=== PATIENT | female | born 1940 ===

== ENCOUNTER 2020-11-22 14:38 | Outpatient (REF) | payer MEDICARE, SELFPAY ==
--- NOTE | ~2020-11-22 | XR_ITS ---
EXAMINATION: XR RIBS, RIGHT CLINICAL INFORMATION: Right pleurodynia and upper quadrant pain. COMPARISON: Chest x-ray of 11/05/2017 TECHNIQUE: PA chest and 3 views of the right ribs. FINDINGS: There is no evidence of acute parenchymal disease, pneumothorax, or pleural effusion. Heart normal size. No evidence of pulmonary edema. No acute right rib fracture is identified. No destructive bony lesion is appreciated. Patient is status post-cholecystectomy. XR/XR ribs RT min 3V w CXR1V IMPRESSION: No acute parenchymal disease within the chest. No significant abnormality of the right ribs appreciated.
== END 2020-11-22 14:39 | disposition home or self-care (01) ==
LOC: HO.XRAY 14:38
PROVIDERS: PCP Family Medicine; Visit Provider Emergency Medicine
DX: R07.81 Pleurodynia (principal); R10.11 Right upper quadrant pain
CPT/HCPCS: 71101

== ENCOUNTER 2021-01-13 09:54 | Outpatient (REF) | payer MEDICARE, SELFPAY ==
--- NOTE | ~2021-01-13 | XR_ITS ---
EXAMINATION: XR KNEE, RIGHT CLINICAL INFORMATION: Right lower leg injury COMPARISON: None TECHNIQUE: Four views of the right knee. FINDINGS: Osteopenia. No fracture, dislocation, or joint effusion. Vascular calcifications. Enthesopathy of the distal quadriceps tendon attachment to the patella. Mild medial compartment joint space narrowing. XR/XR knee RT 4V IMPRESSION: Mild degenerative changes. No acute osseous abnormality.
== END 2021-01-13 09:55 | disposition home or self-care (01) ==
LOC: HO.XRAY 09:54
PROVIDERS: Absent Provider Family Medicine; PCP Family Medicine; Visit Provider Emergency Medicine
DX: S89.91XD Unspecified injury of right lower leg, subsequent encounter (principal)
CPT/HCPCS: 73564

== ENCOUNTER 2021-01-18 11:06 | Outpatient (REF) | payer MEDICARE, SELFPAY ==
--- NOTE | ~2021-01-18 | US_ITS ---
EXAMINATION: US ABDOMEN COMPLETE CLINICAL INFORMATION: Right upper quadrant pain. COMPARISON: CT abdomen and pelvis 04/26/2017. Renal ultrasound 10/12/2016. Ultrasound abdomen complete 03/09/2015. TECHNIQUE: Real-time imaging of the abdominal viscera. FINDINGS: PANCREAS: Normal ABDOMINAL AORTA: The proximal, mid, and distal segments are normal in caliber. INFERIOR VENA CAVA: Visualized portions are normal. LIVER: Normal. The liver is normal in size. The liver contour is normal. Parenchymal echogenicity is normal. No focal hepatic lesion. There is no intrahepatic biliary duct dilatation seen. GALLBLADDER: Surgically absent. COMMON BILE DUCT: Normal in caliber measuring 0.5 cm in diameter. RIGHT KIDNEY: Normal. No hydronephrosis. No renal calculi or focal parenchymal lesions. The kidney measures 11.6 cm in maximum dimension. LEFT KIDNEY: There are anechoic cysts seen. The upper pole cyst laterally measures 1.6 x 1.9 x 1.8 seen. A midpole cyst laterally measures 1.9 x 2.0 x 1.7 cm. No hydronephrosis or renal calculi. The kidney measures 10.2 cm in maximum dimension. SPLEEN: The spleen is small size. The spleen measures 6.6 cm in maximum dimension. FREE FLUID: None US/US abdomen complete IMPRESSION: Left renal cysts. No echogenic renal calculi or hydronephrosis. The rest of the abdominal ultrasound is unremarkable.
== END 2021-01-18 11:07 | disposition home or self-care (01) ==
LOC: HO.US 11:06
PROVIDERS: Visit Provider Emergency Medicine
DX: R10.11 Right upper quadrant pain (principal); R07.81 Pleurodynia
CPT/HCPCS: 76700

== ENCOUNTER 2021-03-10 10:02 | Outpatient (REF) | payer MEDICARE, SELFPAY ==
--- NOTE | ~2021-03-10 | XR_ITS ---
EXAMINATION: 1. XR KNEES AP STANDING 2. XR RIGHT KNEE TWO VIEWS CLINICAL INFORMATION: Right knee pain COMPARISON: None TECHNIQUE: AP bilateral standing view of the knees was obtained in addition to lateral and patellar sunrise views of the right knee. FINDINGS: No fracture or dislocation of the right knee. There is a small to moderate right-sided suprapatellar joint effusion. Mild to moderate narrowing of the right medial and patellofemoral joint spaces. Small tricompartmental marginal osteophytes are noted within the right knee, most prominent within the medial compartment. Vascular calcifications are demonstrated. AP view of the left knee demonstrates mild to moderate narrowing of the left medial joint space. XR/XR knee RT 1V IMPRESSION: Mild to moderate degenerative changes of the right knee with a [id number] right-sided suprapatellar joint effusion.
--- NOTE | ~2021-03-10 | XR_ITS ---
EXAMINATION: 1. XR KNEES AP STANDING 2. XR RIGHT KNEE TWO VIEWS CLINICAL INFORMATION: Right knee pain COMPARISON: None TECHNIQUE: AP bilateral standing view of the knees was obtained in addition to lateral and patellar sunrise views of the right knee. FINDINGS: No fracture or dislocation of the right knee. There is a small to moderate right-sided suprapatellar joint effusion. Mild to moderate narrowing of the right medial and patellofemoral joint spaces. Small tricompartmental marginal osteophytes are noted within the right knee, most prominent within the medial compartment. Vascular calcifications are demonstrated. AP view of the left knee demonstrates mild to moderate narrowing of the left medial joint space. XR/XR knee standing BI IMPRESSION: Mild to moderate degenerative changes of the right knee with a [id number] right-sided suprapatellar joint effusion.
== END 2021-03-10 10:03 | disposition home or self-care (01) ==
LOC: HO.HOSX 10:02
PROVIDERS: Visit Provider Physician Assistant
DX: M17.11 Unilateral primary osteoarthritis, right knee (principal); M25.562 Pain in left knee
CPT/HCPCS: 73560; 73565; 99202

== ENCOUNTER 2021-07-05 10:54 | Outpatient (REF) | payer MEDICARE, SELFPAY ==
--- NOTE | ~2021-07-05 | MM_ITS ---
EXAMINATION: BONE DENSITOMETRY CLINICAL INDICATION: Osteopenia. COMPARISON: Previous BD dated 04/02/2017 and baseline BD dated 01/27/2009. TECHNIQUE: Using a [employer] DXA System (software version: 13.1) manufactured by [employer], dual-energy x-ray absorptiometry was performed of the lumbar spine and left hip. The images are of good technical quality. Summary results are attached. FINDINGS: AP SPINE L1-L4: Current: BMD 1.246 g/cm2, Z-score 2.3, T-score 0.6, normal, 2.6% decrease from previous, 2.7% decrease from baseline (<5% change is not significant). Prior: BMD 1.279 g/cm2. Baseline: BMD 1.281 g/cm2. LEFT FEMUR, NECK: Current: BMD 0.802 g/cm2, Z-score 0.4, T-score -1.7, osteopenia. Prior: BMD 0.851 g/cm2. Baseline: BMD 0.935 g/cm2. LEFT FEMUR, TOTAL: Current: BMD 0.927 g/cm2, Z-score 1.3, T-score -0.6, normal, 10.2% decrease from previous, 17.5% decrease from baseline (<5% change is not significant). Prior: BMD 1.032 g/cm2. Baseline: BMD 1.124 g/cm2. IDENTIFIED RISK FACTORS: Recurrent falls, height loss, history of fracture (adult), menopause, hysterectomy, bilateral oophorectomy. HISTORY OF FRACTURE: Shoulder. MEDICATIONS: Calcium supplements or multivitamin, vitamin D. MM/XR DEXA axial skeleton IMPRESSION: 1. DIAGNOSIS: Osteopenia based on the lowest T-score value of -1.7 in the femoral neck applying World Health Organization criteria. 2. 10-YEAR FRACTURE RISK PREDICTION, FRAX: Major osteoporotic fracture (clinical spine, forearm, hip or shoulder) 12.4%. Hip fracture 2.8%. 3. Treatment Recommendations: NOF guidelines recommend consideration for treatment in postmenopausal women and men age 50 and older presenting with the following: -A hip or vertebral (clinical or morphometric) fracture. -T-score less than or equal to -2.5 at the femoral neck or spine after appropriate evaluation to exclude secondary causes. -Low bone mass at the hip or spine and a 10-year fracture probability by FRAX of greater than or equal to 3% for hip fracture or greater than or equal to 20% for major osteoporotic fracture based on the [place] adapted WHO algorithm. 4. Other Recommendations: All treatment decisions require clinical judgment and consideration of individual patient factors, including patient preferences, comorbidities, previous drug use, risk factors not captured in the FRAX model (e.g. frailty, falls, vitamin D deficiency, increased bone turnover, interval significant decline in bone density) and possible under or overestimation of fracture risk by FRAX. Additional medical evaluation for secondary cause of low bone mineral density may be appropriate. FUTURE SCAN RECOMMENDATION: People with diagnosed cases of osteoporosis or at high risk for fracture should have regular bone mineral density tests. For patients eligible for Medicare, routine testing is allowed once every 2 years. The testing frequency can be increased to one year for patients who have rapidly progressing disease, those who are receiving or discontinuing medical therapy to restore bone mass, or have additional risk factors.
== END 2021-07-05 10:55 | disposition home or self-care (01) ==
LOC: HO.MAMMO 10:54
PROVIDERS: PCP Registered Nurse Community Health; Visit Provider Registered Nurse Community Health
DX: Z13.820 Encounter for screening for osteoporosis (principal); Z78.0 Asymptomatic menopausal state; M85.80 Other specified disorders of bone density and structure, unspecified site; Z90.710 Acquired absence of both cervix and uterus; Z90.722 Acquired absence of ovaries, bilateral
CPT/HCPCS: 77080

== ENCOUNTER 2021-11-08 09:35 | Outpatient (REF) | payer OTHER, SELFPAY ==
--- NOTE | ~2021-11-08 | CT_ITS ---
EXAMINATION: CT ABDOMEN WITHOUT CONTRAST CLINICAL INFORMATION: Right upper quadrant pain. COMPARISON: Ultrasound of the abdomen 01/20/2021. TECHNIQUE: Contiguous axial thin section helical images of the abdomen were performed without contrast. The data set was reformatted in the coronal and sagittal planes and reviewed on an independent workstation. This CT examination was performed using dose optimization techniques as appropriate, variously including the following: *Automated exposure control *Adjustment of mA and/or kV according to patient size (this includes techniques or standardized protocols for targeted exams where dose is matched to indication/reason for exam; i.e. extremities or head) *Use of iterative reconstruction technique DLP: 188 mGy-cm FINDINGS: LUNG BASES: Minimal atelectatic changes are seen in left lung base. The heart size is normal. LIVER, GALLBLADDER, BILIARY TREE: The liver is homogeneous in density, normal in size and contour. No focal lesion or intrahepatic ductal dilatation is seen. The gallbladder has been surgically removed. The common bile duct is prominent measuring 9 mm. PANCREAS: The pancreas is homogeneous in density and appears unremarkable. SPLEEN: The spleen is normal in size and unremarkable. ADRENAL GLANDS AND KIDNEYS: The adrenal glands are symmetric and normal. Both kidneys are normal size, shape and position. There is a 1.6 cm hypodensity in the lower pole of the right kidney measuring cyst density. There is an exophytic cyst of the midpole of the left kidney measuring 1.6 x 1.8 cm. BOWEL LOOPS: Scattered stool, diverticuli and gas is seen throughout the colon without any significant distention. There is nonspecific mild mural thickening involving the hepatic flexure and ascending colon with moderate stool. The small bowel loops are normal caliber. The appendix is not visualized well. No free air or free fluid is seen. The stomach is nondistended with oral contrast. LYMPH NODES: Normal. VASCULAR: Unremarkable. BONES: There is grade 1 anterolisthesis at L4-L5 with degenerative disc changes at L5-S1 and L1-L2 disc levels with vacuum disc phenomena. Mild ventral spondylosis seen as well. CT/CT abdomen wo con IMPRESSION: No acute intra-abdominal process seen. Bilateral renal cysts. The gallbladder has been surgically removed. Normal pancreas. Mild constipation. Nonspecific mild mural thickening at the distal ascending colon and hepatic flexure. Mild scattered colonic diverticulosis. Fleischner guidelines were followed.
[2021-11-08] MEDS: Barium Sulfate Oral (Vanilla) 450 ML ORAL.SUSP PO (11:25)
== END 2021-11-08 09:36 | disposition home or self-care (01) ==
LOC: HO.CT 09:35
PROVIDERS: PCP Registered Nurse Community Health; Visit Provider Registered Nurse Community Health
DX: R10.11 Right upper quadrant pain (principal)
CPT/HCPCS: 74150

== ENCOUNTER → 2022-01-10 12:37 | Outpatient (BNVA) | payer OTHER, SELFPAY | PROVIDERS: PCP Registered Nurse Community Health; Visit Provider Nurse Practitioner | DX: K59.04 Chronic idiopathic constipation (principal); M54.6 Pain in thoracic spine; R07.81 Pleurodynia | CPT/HCPCS: 99202; 99212 ==

== ENCOUNTER 2022-01-11 11:24 | Outpatient (REF) | payer OTHER, SELFPAY ==
--- NOTE | ~2022-01-11 | XR_ITS ---
EXAMINATION: XR RIBS, RIGHT WITH PA CHEST CLINICAL INFORMATION: Right rib pain. COMPARISON: Chest radiographs dated 11/05/2017; right rib radiographs dated 11/22/2020. TECHNIQUE: 3 views of the right ribs were obtained, together with a PA view of the chest. FINDINGS: Lungs are clear. No consolidation, pneumothorax, or pleural effusion. The cardiomediastinal silhouette and pulmonary vasculature are normal. Osseous structures are unremarkable. Ribs are intact. No fractures are identified. There are right upper quadrant surgical clips. XR/XR ribs RT min 3V w CXR1V IMPRESSION: Unremarkable examination.
--- NOTE | ~2022-01-11 | XR_ITS ---
EXAMINATION: XR THORACOLUMBAR SPINE CLINICAL INFORMATION: Pain COMPARISON: None TECHNIQUE: 3 views of the cervical spine FINDINGS: There is curvature of the proximal lumbar spine to the left. Bone alignment is otherwise normal. No fracture or dislocation is seen. There is multilevel mild degenerative disc disease and spondylosis of the mid and lower thoracic spine. Paraspinal soft tissues are normal. There are is multilevel degenerative changes of the visualized cervical spine. XR/XR thoracic spine 2V IMPRESSION: Degenerative changes.
== END 2022-01-11 11:25 | disposition home or self-care (01) ==
LOC: HO.XRAY 11:24
PROVIDERS: PCP Registered Nurse Community Health; Visit Provider Nurse Practitioner
DX: R07.81 Pleurodynia (principal); M54.6 Pain in thoracic spine
CPT/HCPCS: 71101; 72070

== ENCOUNTER 2022-02-06 12:17 | Observation (INO) | payer OTHER, SELFPAY ==
--- NOTE | ~2022-02-06 | CT_ITS ---
EXAMINATION: CT ANGIOGRAM HEAD CT ANGIOGRAM NECK CLINICAL INFORMATION: Transient ischemic attack. COMPARISON: CT head from 01/01/2011. TECHNIQUE: Initial noncontrast electrical cad designer imaging of the head and neck was performed. Noncontrast head CT was also performed. Test bolus sequences followed by intravenous administration 70 mL of Omnipaque 350. Helical imaging was performed in the axial plane from the aortic arch to the skull vertex. Delayed postcontrast imaging of the head was also performed. The data was processed at the pulmonary function technologist's workstation for generation of MIP sequences. Angled MIPs and volume rendered reformatted images were also generated at an offline 3D workstation. Stenoses are assessed in accordance with NASCET criteria unless otherwise indicated. This CT examination was performed using dose optimization techniques as appropriate, variously including the following: *Automated exposure control. *Adjustment of mA and/or kV according to patient size (this includes techniques or standardized protocols for targeted exams where dose is matched to indication/reason for exam; i.e. extremities or head). *Use of iterative reconstruction technique. DLP: 2380 mGy-cm FINDINGS: CT Head: There is no evidence of acute intracranial hemorrhage or edematous territorial infarction. Scattered hypoattenuation in the periventricular and deep white matter are consistent with moderate microangiopathy. Chronic appearing lacunar infarcts of the anterior limbs of the internal capsules bilaterally were at least partially present in 2010. No new loss of graves-white matter differentiation demonstrated. Proportional prominence of the ventricles and sulcal spaces. No evidence for obstructive hydrocephalus. No abnormal mass effect or midline shift. No extra-axial fluid collections. No pathologic intra-axial enhancement. No acute soft tissue or osseous abnormalities. Moderate mucosal thickening of the paranasal sinuses. The mastoid air cells and middle ear cavities are clear. Bilateral lens extractions. CT Neck: The thyroid gland and remaining cervical soft tissues are within normal limits. Straightening of the normal cervical lordosis. Mild degenerative anterolisthesis of C3 on C4. Advanced degenerative disc disease from C4-T4. Facet and uncovertebral joint arthropathy leads to osseous encroachment on the neural foramina from C3-T2. CT Upper Chest: Mild centrilobular emphysema. No additional significant abnormalities of the visualized upper lungs or upper mediastinum. Neck CTA: Aortic Arch: Normal contour and caliber with mild calcific atherosclerotic disease. Four vessel branching pattern with left vertebral artery arising directly from the arch between the left common carotid and left subclavian arteries. Great Vessel Origins: No significant stenosis of the branch origins. Right Common Carotid Artery: No focal stenosis or occlusion. Cervical Right Internal Carotid Artery: Mild calcific atherosclerotic disease of the carotid bulb and proximal internal carotid artery without flow-limiting stenosis. Left Common Carotid Artery: No focal stenosis or occlusion. Cervical Left Internal Carotid Artery: Mild calcific atherosclerotic disease of the carotid bulb and proximal internal carotid artery without flow-limiting stenosis. Cervical Right Vertebral Artery: Co-dominant. No focal stenosis or occlusion. Cervical Left Vertebral Artery: Co-dominant. Calcific atherosclerotic disease causes moderate stenosis of the origin. No additional focal stenosis or occlusion. Brain CTA: Intracranial Internal Carotid Arteries: Calcific atherosclerotic disease of the intracranial internal carotid arteries without occlusion or flow-limiting stenosis. Right Anterior Cerebral Artery: Normal A1 segment. Normal opacification of the distal YUE segments. Left Anterior Cerebral Artery: Normal A1 segment. Normal opacification of the distal YUE segments. Anterior Communicating Artery: Normal. Right Middle Cerebral Artery: Normal M1 segment of the MCA without focal stenosis or occlusion. Normal arborization of the distal segments. Left Middle Cerebral Artery: Normal M1 segment of the MCA without focal stenosis or occlusion. Normal arborization of the distal segments. Right Vertebral Artery: Normal V4 segment. The posterior inferior cerebellar artery is not well opacified; however, there is no CT evidence of acute occlusion. Left Vertebral Artery: Normal V4 segment. The posterior inferior cerebellar artery is not well opacified; however, there is no CT evidence of acute occlusion. Basilar Artery: Normal without focal stenosis or occlusion. Normal appearance of the proximal superior cerebellar arteries. Right Posterior Cerebral Artery: The P1 segment is diminutive. origin of the FINANCIAL ACCOUNTING MANAGER with robust opacification of the posterior communicating artery. Multifocal mild atherosclerotic stenoses of the distal FINANCIAL ACCOUNTING MANAGER segments. Left Posterior Cerebral Artery: The P1 segment is diminutive. origin of the FINANCIAL ACCOUNTING MANAGER with robust opacification of the posterior communicating artery. Multifocal mild atherosclerotic stenoses of the distal FINANCIAL ACCOUNTING MANAGER segments. Normal opacification of the superior sagittal, straight, transverse, and sigmoid sinuses. CT/CT angio head neck IMPRESSION: 1. No evidence of acute intracranial hemorrhage or edematous territorial infarction. Moderate underlying microangiopathy and generalized cerebral volume loss. 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 2. CTA of the head and neck without proximal occlusion. 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 No additional flow-limiting stenoses. 3. 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
[2022-02-06 12:34] VITALS: BP 157/65; PULSE 64; RESP 16; TEMP 36.9; O2SAT 98; BMI 25.8
--- NOTE | 2022-02-06 12:39 | ECG_ITS ---
Test Reason : ?STROKE Blood Pressure : / mmHG Vent. Rate : 063 BPM Atrial Rate : 063 BPM P-R Int : 188 ms QRS Dur : 084 ms QT Int : 408 ms P-R-T Axes : 023 -10 047 degrees QTc Int : 417 ms Normal sinus rhythm Normal ECG When compared with ECG of 19-OCT-2015 15:33, No significant change was found Referred By: Jennifer Chavez Electronically Signed By:AURE GUZMAN
[2022-02-06 13:24] LABS: MANUAL DIFF FLAG NO
[2022-02-06 13:25] LABS: Basophils Absolute Auto 0.1 X10*3/uL (0.0-0.2); Basophils Percent Auto 1.2 % (0-2); Eosinophils Absolute Auto 0.1 X10*3/uL (0.0-0.4); Eosinophils Percent Auto 1.9 % (0-4); Hematocrit 36.6 % (37.0-47.0); Hemoglobin 11.9 g/dl (12.0-16.0); Imm Gran Abs Auto 0.02 X10*3/uL (0.00-0.03); Imm Gran Pct Auto 0.3 % (0.0-0.4); Lymphocytes Absolute Auto 1.5 X10*3/uL (1.2-4.9); Lymphocytes Percent Auto 25.9 % (20-40); Mean Corpuscular HGB Conc 32.5 g/dl (31.0-35.0); Mean Corpuscular Hemoglobin 30.7 pg (27.0-33.0); Mean Corpuscular Volume 94.3 fL (80.0-98.0); Mean Platelet Volume 9.5 fL (9.4-12.3); Monocytes Absolute Auto 0.5 X10*3/uL (0.1-1.2); Monocytes Percent Auto 8.6 % (2-11); Neutrophils Absolute Auto 3.7 x10*3/uL (2.0-8.3); Neutrophils Percent Auto 62.1 % (45-73); Platelet Count 277 X10*3/uL (160-400); Red Blood Count 3.88 X10*6/uL (4.20-5.50); Red Cell Distribution Width 12.9 % (11.0-16.0); White Blood Count 5.9 X10*3/uL (4.8-10.8)
[2022-02-06 13:42] LABS: Anion Gap 13 (12-20); Blood Urea Nitrogen 11 mg/dL (9-16); Calcium 9.4 mg/dL (8.4-10.2); Carbon Dioxide 28 mmol/L (22-29); Chloride 106 mmol/L (96-108); Creatinine Clr Calc Pharmacy 56.8; Estimated Glomerular Filt Rate > 60; Glucose Random 99 mg/dL (60-115); Potassium 4.3 mmol/L (3.3-5.1); Sodium 143 mmol/L (135-145)
[2022-02-06 14:15] LABS: Appearance Urine Clear; Color Urine Yellow; Glucose Urine UA Negative (Negative); Leukocyte Esterase Urine Negative (Negative); Nitrite Urine Negative (Negative); PH 6.5 (5.0-9.0); Specific Gravity - Urine <= 1.005 (1.005-1.025); Urine Blood Negative (Negative); Urine Ketones Negative (Negative); Urine Protein Negative (Neg-Trace)
[2022-02-06 14:19] LABS: Bacteria Urine None Seen (None Seen); Hyaline Casts Urine 0-2 /LPF (0-2); RBC Urine 0-2 /HPF (0-2); Squamous Epithelial Cell Urine 0-2 /HPF (0-2); WBC Urine 0-5 /HPF (0-5)
--- NOTE | 2022-02-06 14:25 | ED.GENADULT ---
HPI - General Adult General Chief complaint: General Medical Stated complaint: possible stroke, took more medicine then perscribe Time Seen by Provider: 02/06/22 13:22 Source: patient Mode of arrival: ambulatory Limitations: no limitations History of Present Illness HPI narrative: Patient comes to the emergency room complaining of intermittent slurred speech. Patient states that on Saturday she took a tablet of cetirizine for allergies. Patient states that initially she became sleepy. Shortly after throughout the day if she was having trouble speaking, slurring her words. Related Data Home Medications Medication Instructions Recorded Confirmed albuterol sulfate 2.5 mg/3 mL 2.5 mg inhalation Q4H PRN Wheezing 01/10/22 02/06/22 (0.083 %) solution for nebulization albuterol sulfate 90 mcg/actuation 2 puff inhalation Q4H PRN Wheezing 01/10/22 02/06/22 aerosol inhaler (Ventolin HFA) amlodipine 5 mg tablet 5 mg PO DAILY 01/10/22 02/06/22 atorvastatin 80 mg tablet 80 mg PO BEDTIME 01/10/22 02/06/22 cholecalciferol (vitamin D3) 50 50 mcg PO DAILY 01/10/22 02/06/22 mcg (2,000 unit) capsule fluticasone 500 mcg-salmeterol 50 1 ea inhalation BID PRN Wheezing 01/10/22 02/06/22 mcg/dose blistr powdr for inhalation (Wixela Inhub) fluticasone propionate 50 2 spray intranasal DAILY PRN 01/10/22 02/06/22 mcg/actuation nasal Allergy Symptoms spray,suspension levothyroxine 125 mcg tablet 125 mcg PO DAILY 01/10/22 02/06/22 montelukast 10 mg tablet 10 mg PO BEDTIME asthma 01/10/22 02/06/22 oxycodone 5 mg tablet 5 mg PO Q8H PRN pain 01/10/22 02/06/22 trazodone 50 mg tablet 50 - 100 mg PO BEDTIME PRN insomnia 01/10/22 02/06/22 plecanatide 3 mg tablet (Trulance) 3 mg PO DAILY 02/06/22 02/06/22 Previous Rx's Medication Instructions Recorded simethicone 180 mg capsule 180 mg PO QID 30 days #120 caps 09/07/22 Allergies Allergy/AdvReac Type Severity Reaction Status Date / Time Penicillins [PENICILLINS] Allergy Intermediate RASH Verified 01/10/22 12:49 penicillin V Allergy Unknown anaphylaxis Verified 01/10/22 12:49 eggs Allergy Intermediate Itching Uncoded 01/10/22 12:50 Review of Systems Review of Systems: Constitutional : No Weight loss, No Fever, No Chills, No Night Sweats, No Fatigue, No Malaise ENT/Mouth : No Hearing loss, No Ear Pain, No Nasal Congestion, No Sinus Pain, No Hoarseness, No sore throat, No Rhinorrhea, No Swallowing Difficulty Eyes: No Eye Pain, No Swelling, No Redness, No Foreign Body, No Discharge, No Vision Changes Cardiovascular : No Chest Pain, No SOB, No Dyspnea on Exertion, No Orthopnea, No Edema, No Palpitations Respiratory : No Cough, No Sputum, No Wheezing, No Smoke Exposure, No Dyspnea Gastrointestinal : No Nausea, No Vomiting, No Diarrhea, No Constipation, No abdominal Pain, No Hematochezia, No Melena Genitourinary : no irregular bleeding, No Dysuria, No Urinary Frequency, No Hematuria, No Urinary Incontinence, No Urgency, No Flank Pain, No Urinary Flow Changes, No Hesitancy Musculoskeletal : No joint pain, No Myalgias, No Joint Swelling Skin : No Skin Lesions, No rash Neuro : No Weakness, No Numbness, No Paresthesias, No Loss of Consciousness, No Dizziness, No Headache, complaining of slurring her words intermittently Psych : No Anxiety/Panic, No Depression, No SI/HI/AH/VH, No Social Issues, Heme/Lymph: No Bruising, No Bleeding,No Lymphadenopathy Endocrine : No Polyuria, No Polydipsia, No Temperature Intolerance [facility] Past Medical History Surgical History H/O colonoscopy H/O tubal ligation H/O: hysterectomy History of cholecystectomy Family History Family History Family/Other Breast cancer Social History Social History Alcohol intake: former Patient Tobacco Use Status: Former Tobacco user Use of substances other than those prescribed or required for medical reasons: No Advance Directives: No Advance Directives Information Provided: No Physical Exam ED Vital Signs: Vital Signs - 24 hr 02/06/22 12:34 02/06/22 15:29 02/06/22 16:11 Temperature 98.4 F 97.6 F 98.1 F Pulse Rate 64 70 70 Respiratory Rate 16 20 16 Blood Pressure 157/65 H 148/72 H 139/65 Pulse Oximetry 98 96 96 Oxygen Delivery Method Room Air Room Air Room Air BMI result Body Mass Index 25.8 Const Other: Appearance: Alert. Oriented X3. No acute distress. Eyes: Pupils equal, round and reactive to light. ENT: Pharynx normal. Neck: Normal inspection. Neck supple. No lymph nodes noted. No crepitus CVS: Normal heart rate and rhythm. Pulses normal. Normal S1 and S2 Respiratory: No respiratory distress. Breath sounds normal. No Wheezing. No rales Abdomen: Soft and nontender. No rigidity. No distention. Skin: Skin warm and dry. Normal skin color. Normal skin turgor. Extremities: No lower extremity edema. No Lacerations. No Rash Neuro: Oriented X 3. No motor deficit. No sensory deficit. Moving all extremities. No slurred speech. CN 2 through 12 grossly intact Psych: calm, cooperative, normal affect NIH Stroke Scale Level of Consciousness: Alert Level of Consciousness Questions: Answers both questions correctly Level of Consciousness Commands: Performs both tasks correctly Best Gaze: Normal Visual: No visual loss Facial Palsy: Normal Motor Arm (Right): No drift Motor Arm (Left): No drift Motor Leg (Right): No drift Motor Leg (Left): No drift Limb Ataxia: Absent Sensory: Normal Best Language: No aphasia Dysarthia: Normal Extinction and Inattention: No abnormality Score: 0 Course Course Course Narrative: Patient's head CT and CTA did not show any acute abnormalities. Patient being admitted for possible TIA. I discussed the patient with Dr. Rose Medical Decision Making Lab Data Result diagrams: 02/06/22 13:18 02/06/22 13:18 Labs: Lab Results 02/06/22 02/06/22 02/06/22 Range/Units 13:18 13:18 13:59 WBC 5.9 (4.8-10.8) X10*3/uL RBC 3.88 L (4.20-5.50) X10*6/uL Hgb 11.9 L (12.0-16.0) g/dl Hct 36.6 L (37.0-47.0) % MCV 94.3 (80.0-98.0) fL MCH 30.7 (27.0-33.0) pg MCHC 32.5 (31.0-35.0) g/dl RDW 12.9 (11.0-16.0) % Plt Count 277 (160-400) X10*3/uL MPV 9.5 (9.4-12.3) fL Immature Gran % (Auto) 0.3 (0.0-0.4) % Neut % (Auto) 62.1 (45-73) % Lymph % (Auto) 25.9 (20-40) % [place] % (Auto) 8.6 (2-11) % Eos % (Auto) 1.9 (0-4) % Baso % (Auto) 1.2 (0-2) % Lymph # (Auto) 1.5 (1.2-4.9) X10*3/uL [place] # (Auto) 0.5 (0.1-1.2) X10*3/uL Eos # (Auto) 0.1 (0.0-0.4) X10*3/uL Baso # (Auto) 0.1 (0.0-0.2) X10*3/uL Abs Immat Gran (auto) 0.02 (0.00-0.03) X10*3/uL Absolute Neuts (auto) 3.7 (2.0-8.3) x10*3/uL Absolute Nucleated RBC 0.000 (0.0-0.012) X10*3/uL Nucleated RBC % (auto) 0.0 (0.0-0.2) /100WBC Sodium 143 (135-145) mmol/L Potassium 4.3 (3.3-5.1) mmol/L Chloride 106 (96-108) mmol/L Carbon Dioxide 28 (22-29) mmol/L Anion Gap 13 (12-20) BUN 11 (9-16) mg/dL Creatinine 0.71 (0.5-1.4) mg/dL Estim Creat Clear Calc 56.8 Estimated GFR > 60 Random Glucose 99 (60-115) mg/dL Calcium 9.4 (8.4-10.2) mg/dL Urine Color Yellow Urine Appearance Clear Urine pH 6.5 (5.0-9.0) Ur Specific [place] <= 1.005 (1.005-1.025) Urine Protein Negative (Neg-Trace) mg/dL Urine Glucose (UA) Negative (Negative) mg/dL Urine Ketones Negative (Negative) mg/dL Urine Blood Negative (Negative) Urine Nitrite Negative (Negative) Ur Leukocyte Esterase Negative (Negative) Urine RBC 0-2 (0-2) /HPF Urine WBC 0-5 (0-5) /HPF Ur Squamous Epith Cells 0-2 (0-2) /HPF Urine Bacteria None Seen (None Seen) Hyaline Casts 0-2 (0-2) /LPF Imaging Data Had a neck CT and CTA: Radiologist's impression: INDINGS: CT Head: There is no evidence of acute intracranial hemorrhage or edematous territorial infarction. Scattered hypoattenuation in the periventricular and deep white matter are consistent with moderate microangiopathy. Chronic appearing lacunar infarcts of the anterior limbs of the internal capsules bilaterally were at least partially present in 2011. No new loss of graves-white matter differentiation demonstrated. Proportional prominence of the ventricles and sulcal spaces. No evidence for obstructive hydrocephalus. No abnormal mass effect or midline shift. No extra-axial fluid collections. No pathologic intra-axial enhancement. No acute soft tissue or osseous abnormalities. Moderate mucosal thickening of the paranasal sinuses. The mastoid air cells and middle ear cavities are clear. Bilateral lens extractions. CT Neck: The thyroid gland and remaining cervical soft tissues are within normal limits. Straightening of the normal cervical lordosis. Mild degenerative anterolisthesis of C3 on C4. Advanced degenerative disc disease from C4-T4. Facet and uncovertebral joint arthropathy leads to osseous encroachment on the neural foramina from C3-T2. CT Upper Chest: Mild centrilobular emphysema. No additional significant abnormalities of the visualized upper lungs or upper mediastinum. Neck CTA: Aortic Arch: Normal contour and caliber with mild calcific atherosclerotic disease. Four vessel branching pattern with left vertebral artery arising directly from the arch between the left common carotid and left subclavian arteries. Great Vessel Origins: No significant stenosis of the branch origins. Right Common Carotid Artery: No focal stenosis or occlusion. Cervical Right Internal Carotid Artery: Mild calcific atherosclerotic disease of the carotid bulb and proximal internal carotid artery without flow-limiting stenosis. Left Common Carotid Artery: No focal stenosis or occlusion. Cervical Left Internal Carotid Artery: Mild calcific atherosclerotic disease of the carotid bulb and proximal internal carotid artery without flow-limiting stenosis. Cervical Right Vertebral Artery: Co-dominant. No focal stenosis or occlusion. Cervical Left Vertebral Artery: Co-dominant. Calcific atherosclerotic disease causes moderate stenosis of the origin. No additional focal stenosis or occlusion. Brain CTA: Intracranial Internal Carotid Arteries: Calcific atherosclerotic disease of the intracranial internal carotid arteries without occlusion or flow-limiting stenosis. Right Anterior Cerebral Artery: Normal A1 segment. Normal opacification of the distal YUE segments. Left Anterior Cerebral Artery: Normal A1 segment. Normal opacification of the distal YUE segments. Anterior Communicating Artery: Normal. Right Middle Cerebral Artery: Normal M1 segment of the MCA without focal stenosis or occlusion. Normal arborization of the distal segments. Left Middle Cerebral Artery: Normal M1 segment of the MCA without focal stenosis or occlusion. Normal arborization of the distal segments. Right Vertebral Artery: Normal V4 segment. The posterior inferior cerebellar artery is not well opacified; however, there is no CT evidence of acute occlusion. Left Vertebral Artery: Normal V4 segment. The posterior inferior cerebellar artery is not well opacified; however, there is no CT evidence of acute occlusion. Basilar Artery: Normal without focal stenosis or occlusion. Normal appearance of the proximal superior cerebellar arteries. Right Posterior Cerebral Artery: The P1 segment is diminutive. origin of the [employer] with robust opacification of the posterior communicating artery. Multifocal mild atherosclerotic stenoses of the distal [employer] segments. Left Posterior Cerebral Artery: The P1 segment is diminutive. origin of the [employer] with robust opacification of the posterior communicating artery. Multifocal mild atherosclerotic stenoses of the distal [employer] segments. Normal opacification of the superior sagittal, straight, transverse, and sigmoid sinuses. CT/CT angio head neck IMPRESSION: 1. No evidence of acute intracranial hemorrhage or edematous territorial infarction. Moderate underlying microangiopathy and generalized cerebral volume loss. 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 ? 2. CTA of the head and neck without proximal occlusion. 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 No additional flow-limiting stenoses. ? 3. 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 Discharge Plan Discharge Clinical Impression: Brain TIA Patient Disposition: Admitted As Inpatient
--- NOTE | 2022-02-06 14:53 | PC.NURSE ---
alert pt and family report slurred speech and trouble w words since saturday but improved since yesterday, skin wpd, alert, reports no other difficulties or deficits, iv placed for CTA
[2022-02-06] MEDS: iohexoL 350 MG/ML 100 ML INFUS..BTL IV (15:15)
[2022-02-06 15:29] VITALS: BP 148/72; PULSE 70; RESP 20; TEMP 36.4; O2SAT 96
--- NOTE | 2022-02-06 15:51 | PC.NURSE ---
Pt VS slightly elevated, PT was connected to the telemetry and it shows NSR with PVC, Lungs sounds are clear, auscultated heart sound and heard a murmur. Pt is waiting on the CT scan results, IV 20G on LAC, Pt has + peripheral pulses, Pt has slightly weakness on her left hand when asked to touch her noise with eyes close. Pt words were confabulated, and not clear. Pt has slurred speech, swallowing test will me completed. will continue to monitor.
[2022-02-06 16:11] VITALS: BP 139/65; PULSE 70; RESP 16; TEMP 36.7; O2SAT 96
--- NOTE | 2022-02-06 17:24 | PHA.MEDREC ---
Pharmacy Consult ? Medication Reconciliation Pharmacy has completed the medication reconciliation. Spoke to patient and daughter. Patient states they take all their inhalers prn and the amlodipine prn when they feel blood pressure is high. Thanks Ramiro
--- NOTE | 2022-02-06 17:46 | PM.IMHP ---
History of Present Illness Date of Service: 02/06/22 Chief Complaint: Speech difficulties Patient comes to the emergency room complaining of intermittent slurred speech.? Patient states that on Saturday she took a tablet of cetirizine for allergies.? Patient states that initially she became sleepy.? Shortly after throughout the day if she was having trouble speaking, slurring her words. Sleepiness has improved however difficulty speaking has persisted. She denies other focal neurological complaints. Review of Systems Review of Systems: Via daughter Denies chest pain Denies shortness of breath Denies nausea vomiting diarrhea Denies fever or chills PMFSH Family History Family/Other Breast cancer Surgical History H/O colonoscopy H/O tubal ligation H/O: hysterectomy History of cholecystectomy Social History Alcohol intake: former Patient Tobacco Use Status: Former Tobacco user Use of substances other than those prescribed or required for medical reasons: No Advance Directives: No Advance Directives Information Provided: No Meds Allergies Allergy/AdvReac Type Severity Reaction Status Date / Time Penicillins [PENICILLINS] Allergy Intermediate RASH Verified 01/10/22 12:49 penicillin V Allergy Unknown anaphylaxis Verified 01/10/22 12:49 eggs Allergy Intermediate Itching Uncoded 01/10/22 12:50 Active Medications: Current Medications Acetaminophen (Acetaminophen 325 Mg Tablet) 650 mg PO Q6H PRN PRN Reason: Pain, Mild (Pain Scale 1-3) Albuterol Sulfate (Albuterol Sulfate (0.083%) 2.5 Mg/3 Ml Vial.Neb) 2.5 mg INHALE Q4H PRN PRN Reason: Wheezing Albuterol Sulfate (Albuterol Sulfate 90 Mcg 8 Gm Inhaler) 2 puff INHALE Q4H PRN PRN Reason: Wheezing Amlodipine Besylate (Amlodipine Besylate 5 Mg Tablet) 5 mg PO DAILY [facility]; Protocol Aspirin (Aspirin Enteric Coated 81 Mg Tablet.Dr) 81 mg PO DAILY [facility] Atorvastatin Calcium (Atorvastatin Calcium 80 Mg Tablet) 80 mg PO BEDTIME [facility] Enoxaparin Sodium (Enoxaparin Sodium 40 Mg/0.4 Ml Syringe) 40 mg SUBCUT Q24H [facility] Levothyroxine Sodium (Levothyroxine Sodium 125 Mcg Tablet) 125 mcg PO DAILY@0600 ON LICENSE OF [facility] Montelukast Sodium (Montelukast Sodium 10 Mg Tablet) 10 mg PO BEDTIME ON LICENSE OF [facility] Ondansetron HCl (Ondansetron Hcl 4 Mg/2 Ml Vial) 4 mg IVPUSH Q8H PRN PRN Reason: Nausea and Vomiting Pharmacy Consult (Consult Rx Perform Med Rec) 1 each MISCELLANE ONCE PRN PRN Reason: Consult order Simethicone (Simethicone 80 Mg Tab.Chew) 160 mg PO QID ON LICENSE OF [facility] Sodium Chloride (0.9 % Sodium Chloride Flush 3 Ml Syringe) 3 ml IVFLUSH QSHIFT ON LICENSE OF [facility] Vitamin D (Cholecalciferol (Vitamin D3) 25 Mcg Tablet) 50 mcg PO DAILY ON LICENSE OF [facility] Home Medications Medication Instructions Recorded Confirmed Last Taken Type albuterol sulfate 2.5 mg/3 mL 2.5 mg inhalation Q4H PRN Wheezing 01/10/22 02/06/22 Unknown History (0.083 %) solution for nebulization albuterol sulfate 90 mcg/actuation 2 puff inhalation Q4H PRN Wheezing 01/10/22 02/06/22 Unknown History aerosol inhaler (Ventolin HFA) amlodipine 5 mg tablet 5 mg PO DAILY 01/10/22 02/06/22 Unknown History atorvastatin 80 mg tablet 80 mg PO BEDTIME 01/10/22 02/06/22 02/05/22 History cholecalciferol (vitamin D3) 50 50 mcg PO DAILY 01/10/22 02/06/22 02/06/22 History mcg (2,000 unit) capsule fluticasone 500 mcg-salmeterol 50 1 ea inhalation BID PRN Wheezing 01/10/22 02/06/22 02/06/22 History mcg/dose blistr powdr for inhalation (Wixela Inhub) fluticasone propionate 50 2 spray intranasal DAILY PRN 01/10/22 02/06/22 Unknown History mcg/actuation nasal Allergy Symptoms spray,suspension levothyroxine 125 mcg tablet 125 mcg PO DAILY 01/10/22 02/06/22 02/06/22 History montelukast 10 mg tablet 10 mg PO BEDTIME asthma 01/10/22 02/06/22 02/05/22 History oxycodone 5 mg tablet 5 mg PO Q8H PRN pain 01/10/22 02/06/22 Unknown History trazodone 50 mg tablet 50 - 100 mg PO BEDTIME PRN insomnia 01/10/22 02/06/22 Unknown History plecanatide 3 mg tablet (Trulance) 3 mg PO DAILY 02/06/22 02/06/22 Unknown History Physical Exam Vital Signs and Narrative: Vital Signs: Last Vital Signs Temp 98.1 F 02/06/22 16:11 Pulse 70 02/06/22 16:11 Resp 16 02/06/22 16:11 BP 139/65 02/06/22 16:11 Pulse Ox 96 02/06/22 16:11 O2 Del Method 02/06/22 16:11 BMI result Body Mass Index 25.8 Const: Other: Awake alert oriented x3 no acute distress Resp: Other: Clear to auscultation bilaterally no rales rhonchi or wheezes Cardio: Other: No S4; positive S1-S2; no S3 murmurs rubs gallops GI: Other: Soft nontender nondistended normoactive bowel sounds Neuro: Other: Cranial nerves 2-12 grossly intact as tested. Motor is 5/5 all extremities sensation is intact; speech slurred per daughter Extrem: Other: No edema bilaterally Results Labs CBC and Chem 7: 02/06/22 13:18 02/06/22 13:18 Labs: Laboratory Results - last 24 hr 02/06/22 02/06/22 02/06/22 13:18 13:18 13:59 MCV 94.3 MCH 30.7 MCHC 32.5 RDW 12.9 Plt Count 277 MPV 9.5 Immature Gran % (Auto) 0.3 Neut % (Auto) 62.1 Lymph % (Auto) 25.9 Gray % (Auto) 8.6 Eos % (Auto) 1.9 Baso % (Auto) 1.2 Lymph # (Auto) 1.5 Gray # (Auto) 0.5 Eos # (Auto) 0.1 Baso # (Auto) 0.1 Abs Immat Gran (auto) 0.02 Absolute Neuts (auto) 3.7 Absolute Nucleated RBC 0.000 Nucleated RBC % (auto) 0.0 Anion Gap 13 Estim Creat Clear Calc 56.8 Estimated GFR > 60 Random Glucose 99 Calcium 9.4 Urine Color Yellow Urine Appearance Clear Urine pH 6.5 Ur Specific [place] <= 1.005 Urine Protein Negative Urine Glucose (UA) Negative Urine Ketones Negative Urine Blood Negative Urine Nitrite Negative Ur Leukocyte Esterase Negative Urine RBC 0-2 Urine WBC 0-5 Ur Squamous Epith Cells 0-2 Urine Bacteria None Seen Hyaline Casts 0-2 Imaging Radiologist's Impressions: Impressions Head/Neck CTA 02/06/22 15:13 IMPRESSION: 1. No evidence of acute intracranial hemorrhage or edematous territorial infarction. Moderate underlying microangiopathy and generalized cerebral volume loss. 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 2. CTA of the head and neck without proximal occlusion. 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 No additional flow-limiting stenoses. 3. 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 Assessment and Plan (1) Garbled speech: Status: Acute (2) Hypertension: Status: Acute (3) Hyperlipidemia: Status: Acute (4) Hypothyroidism: Status: Acute Plan 81-year-old female presents with daughter who states that after taking a surgeries seen 4 days ago she became sleepy and developed slurred speech. Symptoms have not resolved. Workup in the emergency room including CTA of the head and neck are unremarkable 1. Garbled speech (question TIA) -ASA/statin -MRI in a.m. -observe on telemetry -Neuro consult in a.m. 2. Hypertension -acceptable control on current therapies -adjust as indicated -follow renals/divalents 3. Hyperlipidemia -continue statin 4. Hypothyroidism -continue outpatient supplement Full code Lovenox Patient will likely require 1 night to complete workup for TIA. This cannot be done at a less acute setting Quality Stroke Does the patient have a stroke diagnosis?: No VTE Prior VTE?: No VTE Risk Level:: Medical - moderate - high VTE Device Contraindication: Treatment Not Indicated VTE Drug Contraindication: N/A - Med Ordered
[2022-02-06 17:47] VITALS: BP 147/72; PULSE 68; RESP 16; TEMP 36.6; O2SAT 94
--- NOTE | 2022-02-06 18:19 | PC.NURSE ---
Pt V/S are stable, pt had a swallowing test and she pass. Pt is able to eat safely. will continue to monitor.
[2022-02-06] MEDS: Enoxaparin Sodium 40 MG/0.4 ML SYRINGE SUBCUT (19:24)
[2022-02-06] MEDS: Aspirin Enteric Coated 81 MG TABLET.DR PO (19:24)
--- NOTE | 2022-02-06 19:28 | PC.NURSE ---
pt medicated per order
[2022-02-06 19:44] VITALS: BP 146/65; PULSE 74; RESP 21; O2SAT 94
[2022-02-06] MEDS: Montelukast Sodium 10 MG TABLET PO (21:54)
[2022-02-06] MEDS: Atorvastatin Calcium 80 MG TABLET PO (21:54)
--- NOTE | 2022-02-06 21:57 | PC.NURSE ---
pt medicated per order
[2022-02-06 21:59] LABS: COVID-19 Test Negative (Negative)
--- NOTE | 2022-02-06 22:38 | PC.NURSE ---
Pt V/S are stable, Pt family is at bedside. Pt has no apparent distress at this time. Pt is a/o x3, speech is improving.
[2022-02-06 23:58] VITALS: BP 139/66; PULSE 66; RESP 18; O2SAT 92
[2022-02-07 04:00] VITALS: BP 133/57; PULSE 62; RESP 15; O2SAT 95
[2022-02-07 06:31] LABS: MANUAL DIFF FLAG NO
[2022-02-07] MEDS: Levothyroxine Sodium 125 MCG TABLET PO (06:34)
[2022-02-07 06:36] LABS: Basophils Absolute Auto 0.1 X10*3/uL (0.0-0.2); Basophils Percent Auto 1.1 % (0-2); Eosinophils Absolute Auto 0.1 X10*3/uL (0.0-0.4); Eosinophils Percent Auto 2.5 % (0-4); Hematocrit 33.6 % (37.0-47.0); Hemoglobin 11.2 g/dl (12.0-16.0); Imm Gran Abs Auto 0.02 X10*3/uL (0.00-0.03); Imm Gran Pct Auto 0.4 % (0.0-0.4); Lymphocytes Absolute Auto 1.6 X10*3/uL (1.2-4.9); Lymphocytes Percent Auto 29.3 % (20-40); Mean Corpuscular HGB Conc 33.3 g/dl (31.0-35.0); Mean Corpuscular Hemoglobin 31.4 pg (27.0-33.0); Mean Corpuscular Volume 94.1 fL (80.0-98.0); Mean Platelet Volume 9.8 fL (9.4-12.3); Monocytes Absolute Auto 0.6 X10*3/uL (0.1-1.2); Monocytes Percent Auto 10.3 % (2-11); Neutrophils Absolute Auto 3.1 x10*3/uL (2.0-8.3); Neutrophils Percent Auto 56.4 % (45-73); Platelet Count 254 X10*3/uL (160-400); Red Blood Count 3.57 X10*6/uL (4.20-5.50); Red Cell Distribution Width 12.9 % (11.0-16.0); White Blood Count 5.5 X10*3/uL (4.8-10.8)
[2022-02-07 06:55] LABS: Alanine Aminotransferase 11 U/L (0-31); Albumin Level 3.7 g/dL (3.5-5.0); Alkaline Phosphatase 49 U/L (39-117); Anion Gap 13 (12-20); Aspartate Amino Transferase 14 U/L (5-31); Bilirubin Total 0.6 mg/dL (0.0-1.0); Blood Urea Nitrogen 9 mg/dL (9-16); Calcium 8.9 mg/dL (8.4-10.2); Carbon Dioxide 27 mmol/L (22-29); Chloride 107 mmol/L (96-108); Creatinine Clr Calc Pharmacy 61.1; Estimated Glomerular Filt Rate > 60; Glucose Fasting 93 mg/dL (60-99); Potassium 3.6 mmol/L (3.3-5.1); Sodium 143 mmol/L (135-145); Total Protein 5.9 g/dL (6.5-8.0)
[2022-02-07] MEDS: 0.9 % Sodium Chloride Flush 3 ML SYRINGE IVFLUSH (08:02)
[2022-02-07 08:55] VITALS: BP 132/68; PULSE 65; RESP 20; TEMP 36.7; O2SAT 97
[2022-02-07] MEDS: Aspirin Enteric Coated 81 MG TABLET.DR PO (11:08)
[2022-02-07] MEDS: amLODIPine Besylate 5 MG TABLET PO (11:08)
[2022-02-07 11:38] VITALS: BP 139/73; PULSE 70; RESP 16; TEMP 36.7; O2SAT 98
--- NOTE | 2022-02-07 11:39 | MHC.CM.PN ---
met with pt and her dgters pt has 28 hrs a week f [employer] she is covid vax x 3 she has her own ride home dc plan homewith [employer]
--- NOTE | 2022-02-07 12:29 | P.CNNE_ITS ---
History of Present Illness Data of Consult Service Date: 02/07/22 Primary Care Provider: Abeba Anne NP [facility] Reason for consult: Slurred speech 81 years old woman who has been taking cetirizine 1 tablet a day for allergy. For some reason she took 2 tablets for getting about her exact dose. A little while after she started having feelings of dizziness slurred speech dry mouth and unsteadiness. She came to hospital and had multiple investigations revealing no significant issues. She was feeling much better and was planning to go home. Review of Systems 2 Review of Systems: No recent cold or flu-like PMFSH Family History Family History Family/Other Breast cancer Surgical History Surgical History H/O colonoscopy H/O tubal ligation H/O: hysterectomy History of cholecystectomy Social History Social History Alcohol intake: former Patient Tobacco Use Status: Former Tobacco user Use of substances other than those prescribed or required for medical reasons: No Advance Directives: No Advance Directives Information Provided: No service: No Meds Allergies Allergy/AdvReac Type Severity Reaction Status Date / Time Penicillins [PENICILLINS] Allergy Intermediate RASH Verified 01/10/22 12:49 penicillin V Allergy Unknown anaphylaxis Verified 01/10/22 12:49 eggs Allergy Intermediate Itching Uncoded 01/10/22 12:50 Active Medications: Current Medications Acetaminophen (Acetaminophen 325 Mg Tablet) 650 mg PO Q6H PRN PRN Reason: Pain, Mild (Pain Scale 1-3) Albuterol Sulfate (Albuterol Sulfate (0.083%) 2.5 Mg/3 Ml Vial.Neb) 2.5 mg INHALE Q4H PRN PRN Reason: Wheezing Albuterol Sulfate (Albuterol Sulfate 90 Mcg 8 Gm Inhaler) 2 puff INHALE Q4H PRN PRN Reason: Wheezing Amlodipine Besylate (Amlodipine Besylate 5 Mg Tablet) 5 mg PO DAILY [facility]; Protocol Last Admin: 02/07/22 11:08 Dose: 5 mg Aspirin (Aspirin Enteric Coated 81 Mg Tablet.) 81 mg PO DAILY [facility] Last Admin: 02/07/22 11:08 Dose: 81 mg Atorvastatin Calcium (Atorvastatin Calcium 80 Mg Tablet) 80 mg PO BEDTIME [facility] Last Admin: 02/06/22 21:54 Dose: 80 mg Enoxaparin Sodium (Enoxaparin Sodium 40 Mg/0.4 Ml Syringe) 40 mg SUBCUT Q24H [facility] Last Admin: 02/06/22 19:24 Dose: 40 mg Levothyroxine Sodium (Levothyroxine Sodium 125 Mcg Tablet) 125 mcg PO DAILY@0600 [facility] Last Admin: 02/07/22 06:34 Dose: 125 mcg Montelukast Sodium (Montelukast Sodium 10 Mg Tablet) 10 mg PO BEDTIME [facility] Last Admin: 02/06/22 21:54 Dose: 10 mg Ondansetron HCl (Ondansetron Hcl 4 Mg/2 Ml Vial) 4 mg IVPUSH Q8H PRN PRN Reason: Nausea and Vomiting Pharmacy Consult (Consult Rx Perform Med Rec) 1 each MISCELLANE ONCE PRN PRN Reason: Consult order Simethicone (Simethicone 80 Mg Tab.Chew) 160 mg PO QID [facility] Last Admin: 02/07/22 11:24 Dose: Not Given Sodium Chloride (0.9 % Sodium Chloride Flush 3 Ml Syringe) 3 ml IVFLUSH QSHIFT [facility] Last Admin: 02/07/22 08:02 Dose: 3 ml Vitamin D (Cholecalciferol (Vitamin D3) 25 Mcg Tablet) 50 mcg PO DAILY [facility] Last Admin: 02/07/22 11:24 Dose: Not Given Home Medications Medication Instructions Recorded Confirmed Last Taken Type albuterol sulfate 2.5 mg/3 mL 2.5 mg inhalation Q4H PRN Wheezing 01/10/22 02/06/22 Unknown History (0.083 %) solution for nebulization albuterol sulfate 90 mcg/actuation 2 puff inhalation Q4H PRN Wheezing 01/10/22 02/06/22 Unknown History aerosol inhaler (Ventolin HFA) amlodipine 5 mg tablet 5 mg PO DAILY 01/10/22 02/06/22 Unknown History atorvastatin 80 mg tablet 80 mg PO BEDTIME 01/10/22 02/06/22 02/05/22 History cholecalciferol (vitamin D3) 50 50 mcg PO DAILY 01/10/22 02/06/22 02/06/22 Hi story mcg (2,000 unit) capsule fluticasone 500 mcg-salmeterol 50 1 ea inhalation BID PRN Wheezing 01/10/22 02/06/22 02/06/22 History mcg/dose blistr powdr for inhalation (Filomena Boyce) fluticasone propionate 50 2 spray intranasal DAILY PRN 01/10/22 02/06/22 Unknown History mcg/actuation nasal Allergy Symptoms spray,suspension levothyroxine 125 mcg tablet 125 mcg PO DAILY 01/10/22 02/06/22 02/06/22 History montelukast 10 mg tablet 10 mg PO BEDTIME asthma 01/10/22 02/06/22 02/05/22 History oxycodone 5 mg tablet 5 mg PO Q8H PRN pain 01/10/22 02/06/22 Unknown History trazodone 50 mg tablet 50 - 100 mg PO BEDTIME PRN insomnia 01/10/22 02/06/22 Unknown History plecanatide 3 mg tablet (Trulance) 3 mg PO DAILY 02/06/22 02/06/22 Unknown History Physical Exam Vital Signs: Vital Signs: Last Vital Signs Temp 98.0 F 02/07/22 11:38 Pulse 70 02/07/22 11:38 Resp 16 02/07/22 11:38 BP 139/73 02/07/22 11:38 Pulse Ox 98 02/07/22 11:38 O2 Del Method 02/07/22 11:38 BMI result Body Mass Index 25.8 Neuro: Other: Alert and awake with normal spontaneity of speech fluency comprehension and affect. Face was symmetrical. There was no focal weakness. Plantars were flexor. Results Labs CBC & Chem 7: 02/07/22 06:16 02/07/22 06:16 Labs: Short CBC 02/06/22 02/07/22 Range/Units 13:18 06:16 WBC 5.9 5.5 (4.8-10.8) X10*3/uL Hgb 11.9 L 11.2 L (12.0-16.0) g/dl Hct 36.6 L 33.6 L (37.0-47.0) % Plt Count 277 254 (160-400) X10*3/uL BMP 02/06/22 02/07/22 13:18 06:16 Sodium 143 143 Potassium 4.3 3.6 Chloride 106 107 Carbon Dioxide 28 27 BUN 11 9 Creatinine 0.71 0.66 Calcium 9.4 8.9 Liver Function 02/07/22 Range/Units 06:16 Total Bilirubin 0.6 (0.0-1.0) mg/dL AST 14 (5-31) U/L ALT 11 (0-31) U/L Alkaline Phosphatase 49 (39-117) U/L Albumin 3.7 (3.5-5.0) g/dL Urine 02/06/22 Range/Units 13:59 Urine Color Yellow Urine Appearance Clear Urine pH 6.5 (5.0-9.0) Ur Specific [place] <= 1.005 (1.005-1.025) Urine Protein Negative (Neg-Trace) mg/dL Urine Glucose (UA) Negative (Negative) mg/dL CTA of brain and neck did not reveal any vascular stenosis or acute lesion. Assessment and Plan (1) Encephalopathy: Status: Acute 81 years old woman who mistakenly took to tablets of cetirizine and after that developed multiple symptoms including dry mouth slurred speech dizziness and unsteadiness. Now she was back to baseline. She was educated about proper medications. Family stated that she never had made a mistake. Her workup was negative. Her symptoms are explainable based upon over medication. No further intervention other than being careful is recommended Procedures Date of Service Date of Service: 02/07/22
--- NOTE | 2022-02-07 14:28 | P.DS_ITS ---
DS: Providers Provider Date of Service: 02/07/22 Date of admission: 02/06/22 17:37 Date of discharge: 02/07/22 Primary care physician: Abeba Anne NP Consults: 02/07/22 07:44 Consult to Neurology Stat Consulting Provider: [facility] Reason for consultation: ?TIA Has provider been notified: No DS: Diagnosis Discharge Diagnosis (1) Encephalopathy: Status: Acute DS: Summary Hospital Course Hospital Course: Patient comes to the emergency room complaining of intermittent slurred speech.? Patient states that on Saturday she took a tablet of cetirizine for allergies.? Patient states that initially she became sleepy.? Shortly after throughout the day if she was having trouble speaking, slurring her words.? Sleepiness has improved however difficulty speaking has persisted.? She denies other focal neurological complaints. Admitted to telemetry without any arrhythmias on monitor. Seen by Neurology this a.m. who felt it was encephalopathy secondary to antihistamine. Did not feel patient needed MRI. At this point in time patient will be discharged home with caution with [id number] medicines Time Spent with Patient Time attestation: Total time spent providing and/or coordinating discharge services: Discharge coordination time: Greater than 30 minutes Quality: Safe Use of Opioids Does Pt have an Active Cancer Diagnosis on the Problem List?: No Quality: Stroke Does the patient have a stroke diagnosis?: No Physical Exam Vital Signs: Vital Signs: Last Vital Signs Temp 98.0 F 02/07/22 11:38 Pulse 70 02/07/22 11:38 Resp 16 02/07/22 11:38 BP 139/73 02/07/22 11:38 Pulse Ox 98 02/07/22 11:38 O2 Del Method 02/07/22 11:38 BMI result Body Mass Index 25.8 Const: Other: Awake alert oriented x3 no acute distress Resp: Other: Clear to auscultation bilaterally no rales rhonchi or wheezes Cardio: Other: No S4; positive S1-S2; no S3 murmurs rubs gallops Neuro: Other: Cranial nerves 2-12 grossly intact as tested. Motor is 5/5 all extremities. Sensation is intact. Extrem: Other: No edema bilaterally DS: Data Data Completed and Pending Labs on day of discharge: Laboratory Results - last 24 hr 02/06/22 02/07/22 02/07/22 21:29 06:16 06:16 WBC 5.5 RBC 3.57 L Hgb 11.2 L Hct 33.6 L MCV 94.1 MCH 31.4 MCHC 33.3 RDW 12.9 Plt Count 254 MPV 9.8 Immature Gran % (Auto) 0.4 Neut % (Auto) 56.4 Lymph % (Auto) 29.3 Harlan % (Auto) 10.3 Eos % (Auto) 2.5 Baso % (Auto) 1.1 Lymph # (Auto) 1.6 Harlan # (Auto) 0.6 Eos # (Auto) 0.1 Baso # (Auto) 0.1 Abs Immat Gran (auto) 0.02 Absolute Neuts (auto) 3.1 Absolute Nucleated RBC 0.000 Nucleated RBC % (auto) 0.0 Sodium 143 Potassium 3.6 Chloride 107 Carbon Dioxide 27 Anion Gap 13 BUN 9 Creatinine 0.66 Estim Creat Clear Calc 61.1 Estimated GFR > 60 Fasting Glucose 93 Calcium 8.9 Total Bilirubin 0.6 AST 14 ALT 11 Alkaline Phosphatase 49 Total Protein 5.9 L Albumin 3.7 COVID-19 (BOBBI) Negative COVID-19 Clin Com See Note Discharge Plan Discharge Patient Disposition: Home, Self-Care Discharge Diagnosis: Encephalopathy Referrals: Abeba Anne NP [Primary Care Provider] - 1 Week Discharge Medications: Continued Trulance 3 mg tablet 3 mg PO DAILY albuterol sulfate [Ventolin HFA] 90 mcg/actuation HFA aerosol inhaler 2 puff inhalation Q4H PRN (Reason: Wheezing) fluticasone propionate 50 mcg/actuation spray,suspension 2 spray intranasal DAILY PRN (Reason: Allergy Symptoms) levothyroxine 125 mcg tablet 125 mcg PO DAILY trazodone 50 mg tablet 50 - 100 mg PO BEDTIME PRN (Reason: insomnia) cholecalciferol (vitamin D3) 50 mcg (2,000 unit) capsule 50 mcg PO DAILY montelukast 10 mg tablet 10 mg PO BEDTIME oxycodone 5 mg tablet 5 mg PO Q8H PRN (Reason: pain) fluticasone propion-salmeterol [Wixela Inhub] 500-50 mcg/dose blister with device 1 ea inhalation BID PRN (Reason: Wheezing) atorvastatin 80 mg tablet 80 mg PO BEDTIME amlodipine 5 mg tablet 5 mg PO DAILY albuterol sulfate 2.5 mg /3 mL (0.083 %) solution for nebulization 2.5 mg inhalation Q4H PRN (Reason: Wheezing) simethicone 180 mg capsule 180 mg PO QID 30 Days Qty: 120 3RF Rx Instructions: after meals Discharge Orders: Discharge Order (Routine); Ordered 02/07/22 Ordered By: Aaron Rose Diet: Advance to usual diet Activity on Discharge: As tolerated Stand Alone Forms: Patient Portal Discharge page Care Plan Goals: Avoid antihistamines and future Health Concerns: Continue all previous medicines Plan of Treatment: Follow-up with PCP 2 weeks Assessment: See discharge summary
--- NOTE | 2022-02-07 14:50 | MHC.CM.PN ---
pt dcd home no skilled servcies ordered by
== END 2022-02-07 15:22 | disposition home or self-care (01) ==
LOC: HO.ED 13:56 → HO.EDOVER 17:42
PROVIDERS: Emergency Medicine; Admitting Provider Hospitalist; Emergency Provider Emergency Medicine; PCP Registered Nurse Community Health; Visit Provider Hospitalist
DX: G93.40 Encephalopathy, unspecified (principal); R51.9 Headache, unspecified; E03.9 Hypothyroidism, unspecified; E78.5 Hyperlipidemia, unspecified; I10 Essential (primary) hypertension; Z20.822 Contact with and (suspected) exposure to COVID-19; Z79.899 Other long term (current) drug therapy
CPT/HCPCS: 36415; 70496; 70498; 80048; 80053; 81001; 85025; 87635; 93005; 96372; 96374; 96375; 99219; 99285; J1650; Q9967

== ENCOUNTER → 2022-03-01 11:22 | Outpatient (BNVA) | payer OTHER, SELFPAY | PROVIDERS: PCP Registered Nurse Community Health; Visit Provider Nurse Practitioner | DX: K59.04 Chronic idiopathic constipation (principal); M47.814 Spondylosis without myelopathy or radiculopathy, thoracic region; M54.6 Pain in thoracic spine | CPT/HCPCS: 99212 ==

== ENCOUNTER → 2022-04-05 10:05 | Outpatient (BNVA) | payer OTHER, SELFPAY | PROVIDERS: PCP Registered Nurse Community Health; Visit Provider Nurse Practitioner | DX: K59.04 Chronic idiopathic constipation (principal); M47.814 Spondylosis without myelopathy or radiculopathy, thoracic region; M54.6 Pain in thoracic spine | CPT/HCPCS: 99212 ==

== ENCOUNTER → 2022-05-31 10:49 | Outpatient (BNVA) | payer OTHER, SELFPAY | PROVIDERS: PCP Registered Nurse Community Health; Visit Provider Nurse Practitioner | DX: K59.04 Chronic idiopathic constipation (principal); M47.814 Spondylosis without myelopathy or radiculopathy, thoracic region | CPT/HCPCS: 99212 ==

== ENCOUNTER 2022-11-28 11:02 | Outpatient (AMB) | payer OTHER, SELFPAY ==
--- NOTE | 2022-11-28 11:04 | MHC.OFFVIS ---
Intake Vital Signs 11/28/22 11:12 Height 5 ft 3 in Weight 141 lb 1.533 oz BMI 25.0 BP 132/69 Blood Pressure Location Lt brachial Position Sitting Pulse 67 Intake Visit Reasons: 6 months follow up Intake Note: Angela presents in the office as a 6 month follow up. CC: She states that she is having lots of pains in the right side of her abdomen. Sometimes she will have constipation and other times she will have diarrhea depending on what she eats. Allergies Penicillins [PENICILLINS] Allergy (Intermediate, Verified 11/28/22 11:12) RASH penicillin V Allergy (Unknown, Verified 11/28/22 11:12) anaphylaxis HPI 6 months follow up HPI Details Assessment & Plan (1) Chronic idiopathic constipation: ?Code(s): K59.04 - Chronic idiopathic constipation ?Plan: [place] # daughter translates per patient request She received the Amitiza and it 8 mcg twice a day she feels her constipation is now sufficiently controlled.? She is quite happy now with her GI regimen.? A course the pain in her right mid quadrant continues but we of established in the past that this is probably due to thoracic radiculopathy/spondylosis given her completely negative GI workup.? Return office visit in 6 months. (2) Thoracic spondylosis: ?Code(s): M47.814 - Spondylosis without myelopathy or radiculopathy, thoracic region ? ? ? Medications: Refilled lubiprostone (Nav nile) 8 mcg? PO BID 60 c aps 6RF K59.04 - Chronic i diopathic constipa tion TODAY'S VISIT [place] #dtr translates per pt request She says that the pain in the right flank is worse now, again with movement and bending. I again explain that this is from her thoracic radiculopathy and not her stomach - which is not an intuitive concept to understand. I will trial an RX of celebrex for this. The Amitiza is continuing to move her bowels well. ROV 4-6 weeks to eval celebrex. PFS Surgical History H/O colonoscopy H/O tubal ligation H/O: hysterectomy History of cholecystectomy Family History Family/Other Breast cancer Social History Alcohol intake: former Patient Tobacco Use Status: Former Tobacco user service: No Review of Systems Const Denies fatigue, Denies fever(s), Denies night sweats, Denies poor appetite and Denies weight loss Eyes Details: glasses Reports requires corrective lenses ENT Reports Normal hearing present, Denies dental pain, Denies dysphagia, Denies hearing loss, Denies mouth pain, Denies odynophagia, Denies throat swelling, Denies tongue swelling and Reports other (Dentition adequate) Card Reports no additional complaints Resp Reports no additional complaints GI Reports abdominal pain, Denies melena, Denies bloating, Denies hematochezia, Reports constipation, Denies GI cramping, Denies dysphagia, Denies excessive flatus, Denies early satiety, Denies heartburn, Denies diarrhea, Denies nausea, Denies odynophagia, Denies vomiting and Denies hematemesis Musc Reports back pain and Reports radiating pain into limb Skin/Breast Denies pruritus, Denies lesions, Denies rash and Denies jaundice Neuro Reports Normal hearing present and Denies Abnormal speech present Endo Denies fatigue Aller/Immun Denies throat swelling and Denies tongue swelling Physical Exam Vital Signs: Last Vital Signs Pulse 67 11/28/22 11:12 BP 132/69 11/28/22 11:12 BMI result Body Mass Index 25.0 Const General: cooperative, no acute distress, well developed and well groomed Nutritional Appearance: average body habitus and well nourished Orientation/consciousness: oriented to person, oriented to place and oriented to time Limitations: language barrier HEENT Head: Yes normocephalic and Yes atraumatic Eyes General: appearance normal, both eyes and all related structures Pupils: Equal, round and reactive pupils present Neck Neck: Yes normal visual inspection and Yes no lymphadenopathy Thyroid: Thyroid normal Resp Effort & Inspection: normal respiratory effort and able to speak in complete sentences Auscultation: clear to auscultation bilaterally Cardio Rate: regular rate Rhythm: regular rhythm Heart sounds: Normal, physiologic split S2 sound present Peripheral pulses: radial pulses present and posterior tibial pulses present GI Inspection: No distended and No Abdominal panniculus present Palpation (GI): Soft to palpation, nontender, no guarding, not rigid and No hepatosplenomegaly present Percussion: Yes normal to percussion Auscultation: normal bowel sounds Rectal Exam - Female: deferred Skin General skin exam: no rashes or lesions noted, turgor normal, skin not dry, no jaundice, No spider nevi and no striae Rashes: no rashes Nails: normal Neuro General: oriented to person, oriented to place and oriented to time Cranial nerves: Yes Equal, round and reactive pupils present and Yes Normal hearing present Speech: No Abnormal speech present Extrem General: Yes normal to inspection, No clubbing, No cyanosis and No edema Psych Appearance: grossly normal and well kempt Mental Status: mental status grossly normal Speech and movement: Normal speech and movement present Affect: normal affect Attitude: cooperative Thought process: Normal thought process present and not confabulating Thought content: Normal thought content present Insight: Limited insight present (Psych) Judgement: Limited judgement present (Psych) Assessment & Plan Assessment & Plan (1) Chronic idiopathic constipation: Code(s): K59.04 - Chronic idiopathic constipation Plan: [place] #dtr translates per pt request She says that the pain in the right flank is worse now, again with movement and bending. I again explain that this is from her thoracic radiculopathy and not her stomach - which is not an intuitive concept to understand. I will trial an RX of celebrex for this. The Amitiza is continuing to move her bowels well. ROV 4-6 weeks to eval celebrex. (2) Thoracic spondylosis: Code(s): M47.814 - Spondylosis without myelopathy or radiculopathy, thoracic region Medications: New celecoxib (Celebrex) 200 mg PO BID 60 caps 3RF M47.814 - Spondylosis without myelopathy or radiculopathy, thoracic region Coding Level of Care Code Est Pt Level 3 (72028) Diagnoses Chronic idiopathic constipation K59.04 Thoracic spondylosis M47.814
[2022-11-28 11:12] VITALS: BP 132/69; PULSE 67; BMI 25.0
== END 2022-11-28 11:33 | disposition home or self-care (01) ==
PROVIDERS: Visit Provider Nurse Practitioner
DX: K59.04 Chronic idiopathic constipation (principal); M47.814 Spondylosis without myelopathy or radiculopathy, thoracic region
CPT/HCPCS: 99213

== ENCOUNTER → 2022-11-28 11:02 | Outpatient (BNVA) | payer OTHER, SELFPAY | PROVIDERS: Visit Provider Nurse Practitioner | DX: K59.04 Chronic idiopathic constipation (principal); M47.814 Spondylosis without myelopathy or radiculopathy, thoracic region | CPT/HCPCS: 99212 ==

== ENCOUNTER 2023-01-08 10:36 | Outpatient (REF) | payer OTHER, SELFPAY ==
[2023-01-08 15:14] LABS: TSH reflex Free T4 0.59 uIU/mL (0.32-4.0)
== END 2023-01-08 10:37 | disposition home or self-care (01) ==
LOC: HO.HHCL 10:36
PROVIDERS: Visit Provider Nurse Practitioner Primary Care
DX: E03.8 Other specified hypothyroidism (principal); E06.3 Autoimmune thyroiditis
CPT/HCPCS: 36415; 84443

== ENCOUNTER 2023-01-23 13:50 | Outpatient (AMB) | payer OTHER, SELFPAY ==
[2023-01-23 13:59] VITALS: BP 130/69; PULSE 66; BMI 25.5
--- NOTE | 2023-01-23 13:59 | A.OFFVIS_ITS ---
Intake Vital Signs 01/23/23 13:59 Height 5 ft 3 in Weight 143 lb 11.862 oz BMI 25.5 BP 130/69 Blood Pressure Location Lt brachial Position Sitting Pulse 66 Intake Visit Reasons: 4 week follow up Intake Note: Angela presents in the office as a 4 weeks follow up of abdominal pain. CC: Patient reports she continues to have RUQ abdominal pain and feels like she has something in there. Pain is constant. She also states depending on what she eats she sometimes has constipation or diarrhea. Allergies Penicillins [PENICILLINS] Allergy (Intermediate, Verified 01/23/23 14:01) RASH penicillin V Allergy (Unknown, Verified 01/23/23 14:01) anaphylaxis HPI 4 week follow up HPI Details Assessment & Plan (1) Chronic idiopathic constipation: Code(s): K59.04 - Chronic idiopathic constipation Plan: [place] #dtr translates per pt request She says that the pain in the right flank is worse now, again with movement and bending. I again explain that this is from her thoracic radiculopathy and not her stomach - which is not an intuitive concept to understand. I will trial an RX of celebrex for this. The Jesus is continuing to move her bowels well. ROV 4-6 weeks to eval celebrex. (2) Thoracic spondylosis: Code(s): M47.814 - Spondylosis without myelopathy or radiculopathy, thoracic region Medications: New celecoxib (Celebre x) 200 mg PO BID 60 caps 3RF M47.814 - Spondylo sis without myelop athy or radiculopa thy, thoracic donis on TODAY'S VISIT [place] #[employer] She never received the celebrex for her thoracic back pain, so we can not evaluate how much this would help with her right flank pain. She says she spoke with Dr. Redman and he wanted an US, but she has had all of this imaging w/o any GI or other cause for her pain. She has had negative US and CT scans over the past year. I will refer her to pain management. 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 But she is not crazy about this idea and she is fearful about this. She has asthma/COPD and this causes her concern. She continues to struggle with understanding the concept of radicular pain that manifests in the abdomen. She continues with her Amitiza and it continues to help with her CIC. ROV 6 mos. PFSH Surgical History H/O: hysterectomy H/O tubal ligation History of cholecystectomy H/O colonoscopy Family History Family/Other Breast cancer Social History Alcohol intake: former Patient Tobacco Use Status: Former Tobacco user service: No Review of Systems Const Denies fatigue, Denies fever(s), Denies night sweats, Denies poor appetite and Denies weight loss Eyes Details: glasses Reports requires corrective lenses ENT Reports Normal hearing present, Denies dental pain, Denies dysphagia, Denies hearing loss, Denies mouth pain, Denies odynophagia, Denies throat swelling, Denies tongue swelling and Reports other (Dentition adequate) Card Reports no additional complaints Resp Reports no additional complaints GI Reports abdominal pain, Denies melena, Denies bloating, Denies hematochezia, Reports constipation, Denies GI cramping, Denies dysphagia, Denies excessive flatus, Denies early satiety, Reports heartburn, Denies diarrhea, Denies nausea, Denies odynophagia, Denies vomiting and Denies hematemesis Musc Reports back pain and Reports myalgias Skin/Breast Denies pruritus, Denies lesions, Denies rash and Denies jaundice Neuro Reports Normal hearing present and Denies Abnormal speech present Endo Denies fatigue Aller/Immun Denies throat swelling and Denies tongue swelling Physical Exam Vital Signs: Last Vital Signs Pulse 66 01/23/23 13:59 BP 130/69 01/23/23 13:59 BMI result Body Mass Index 25.5 Const General: cooperative, no acute distress, well developed and well groomed Nutritional Appearance: average body habitus and well nourished Orientation/consciousness: oriented to person, oriented to place and oriented to time Limitations: language barrier HEENT Head: Yes normocephalic and Yes atraumatic Eyes General: appearance normal, both eyes and all related structures Pupils: Equal, round and reactive pupils present Neck Neck: Yes normal visual inspection and Yes no lymphadenopathy Thyroid: Thyroid normal Resp Other: wearing portable air filter with mask Effort & Inspection: normal respiratory effort and able to speak in complete sentences Cardio Rate: regular rate Rhythm: regular rhythm Heart sounds: Normal, physiologic split S2 sound present Peripheral pulses: radial pulses present and posterior tibial pulses present GI Inspection: No distended and No Abdominal panniculus present Palpation (GI): Soft to palpation, Tenderness to palpation present (GI) in the RUQ, no guarding, not rigid and No hepatosplenomegaly present Percussion: Yes normal to percussion Auscultation: normal bowel sounds Rectal Exam - Female: deferred Skin General skin exam: no rashes or lesions noted, turgor normal, skin not dry, no jaundice, No spider nevi and no striae Rashes: no rashes Nails: normal Neuro General: oriented to person, oriented to place and oriented to time Cranial nerves: Yes Equal, round and reactive pupils present and Yes Normal hearing present Speech: No Abnormal speech present Extrem General: Yes normal to inspection, No clubbing, No cyanosis and No edema Psych Appearance: grossly normal and well kempt Mental Status: mental status grossly normal Speech and movement: Normal speech and movement present Affect: normal affect Attitude: cooperative Thought process: Normal thought process present and not confabulating Thought content: Normal thought content present Insight: Limited insight present (Psych) Judgement: Limited judgement present (Psych) Assessment & Plan Assessment & Plan (1) Chronic idiopathic constipation: Code(s): K59.04 - Chronic idiopathic constipation Plan: [place] #[employer] She never received the celebrex for her thoracic back pain, so we can not evaluate how much this would help with her right flank pain. She says she spoke with Dr. Redman and he wanted an US, but she has had all of this imaging w/o any GI or other cause for her pain. She has had negative US and CT scans over the past year. I will refer her to pain management. 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 But she is not crazy about this idea and she is fearful about this. She has asthma/COPD and this causes her concern. She continues to struggle with understanding the concept of radicular pain that manifests in the abdomen. She continues with her Amitiza and it continues to help with her CIC. ROV 6 mos. (2) Thoracic spondylosis: Code(s): M47.814 - Spondylosis without myelopathy or radiculopathy, thoracic region (3) Thoracic back pain: Comment: rt side to abd Code(s): M54.6 - Pain in thoracic spine Orders: Referrals Pain Management Referral M47.814 - Spondylosis without myelopathy or radiculopathy, thoracic region, M54.6 - Pain in thoracic spine Medications: Refilled celecoxib (Celebrex) 200 mg PO BID 60 caps 3RF M47.814 - Spondylosis without myelopathy or radiculopathy, thoracic region Coding Level of Care Code Est Pt Level 3 (51299) Diagnoses Chronic idiopathic constipation K59.04 Thoracic spondylosis M47.814 Thoracic back pain M54.6
== END 2023-01-23 15:55 | disposition home or self-care (01) ==
PROVIDERS: PCP Nurse Practitioner Primary Care; Visit Provider Nurse Practitioner
DX: K59.04 Chronic idiopathic constipation (principal); M47.814 Spondylosis without myelopathy or radiculopathy, thoracic region; M54.6 Pain in thoracic spine
CPT/HCPCS: 99213

== ENCOUNTER → 2023-01-23 13:50 | Outpatient (BNVA) | payer OTHER, SELFPAY | PROVIDERS: PCP Registered Nurse Community Health; Visit Provider Nurse Practitioner | DX: K59.04 Chronic idiopathic constipation (principal); M54.6 Pain in thoracic spine; M47.814 Spondylosis without myelopathy or radiculopathy, thoracic region | CPT/HCPCS: 99212 ==

== ENCOUNTER 2023-07-04 10:09 | Outpatient (REF) | payer OTHER, SELFPAY ==
--- NOTE | ~2023-07-04 | US_ITS ---
EXAMINATION: US ABDOMEN COMPLETE CLINICAL INFORMATION: Right upper quadrant pain, chronic. COMPARISON: CT abdomen 11/08/2021. Ultrasound abdomen complete 01/18/2021. Renal ultrasound 10/12/2016. TECHNIQUE: Real-time imaging of the abdominal viscera. FINDINGS: PANCREAS: Normal. ABDOMINAL AORTA: Visualized aorta is normal in caliber however portions are obscured by bowel gas. INFERIOR VENA CAVA: Visualized portions are normal. LIVER: Normal. The liver is normal in size. The liver contour is normal. Parenchymal echogenicity is normal. No focal hepatic lesion. There is no intrahepatic biliary duct dilatation seen. GALLBLADDER: Surgically absent. COMMON BILE DUCT: Normal in caliber measuring 0.9 cm in diameter. RIGHT KIDNEY: Normal. No hydronephrosis. No renal calculi or focal parenchymal lesions. The kidney measures 12.2 cm in maximum dimension. LEFT KIDNEY: No hydronephrosis or renal calculi. The kidney measures 9.6 cm in maximum dimension. Benign-appearing renal cysts measuring up to 2.4 cm. No follow-up imaging is recommended. SPLEEN: The spleen measures 6.5 cm in maximum dimension. FREE FLUID: None. US/US abdomen complete IMPRESSION: 1. Status post cholecystectomy. No intra or extrahepatic biliary duct dilatation. 2. Portions of the aorta were obscured by bowel gas limiting evaluation.
== END 2023-07-04 10:10 | disposition home or self-care (01) ==
LOC: HO.US 10:09
PROVIDERS: PCP Nurse Practitioner Primary Care; Visit Provider Nurse Practitioner Primary Care
DX: R10.11 Right upper quadrant pain (principal)
CPT/HCPCS: 76700

== ENCOUNTER 2023-08-06 08:58 | Outpatient (REF) | payer OTHER, SELFPAY ==
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
[2023-08-06 12:51] LABS: MANUAL DIFF FLAG NO
[2023-08-06 13:04] LABS: Basophils Absolute Auto 0.1 X10*3/uL (0.0-0.2); Basophils Percent Auto 0.8 % (0-2); Eosinophils Absolute Auto 0.2 X10*3/uL (0.0-0.4); Eosinophils Percent Auto 2.7 % (0-4); Hematocrit 37.3 % (37.0-47.0); Hemoglobin 12.3 g/dl (12.0-16.0); Imm Gran Abs Auto 0.02 X10*3/uL (0.00-0.03); Imm Gran Pct Auto 0.3 % (0.0-0.4); Lymphocytes Absolute Auto 2.8 X10*3/uL (1.2-4.9); Lymphocytes Percent Auto 39.4 % (20-40); Mean Corpuscular Hemoglobin 32.3 pg (27.0-33.0); Mean Corpuscular Volume 97.9 fL (80.0-98.0); Mean Platelet Volume 10.6 fL (9.4-12.3); Monocytes Absolute Auto 0.8 X10*3/uL (0.1-1.2); Monocytes Percent Auto 11.1 % (2-11); Neutrophils Absolute Auto 3.3 x10*3/uL (2.0-8.3); Neutrophils Percent Auto 45.7 % (45-73); Platelet Count 220 X10*3/uL (160-400); Red Blood Count 3.81 X10*6/uL (4.20-5.50); Red Cell Distribution Width 13.2 % (11.0-16.0); White Blood Count 7.1 X10*3/uL (4.8-10.8)
[2023-08-06 13:43] LABS: Anion Gap 9 (12-20); Blood Urea Nitrogen 13 mg/dL (9-16); Calcium 9.6 mg/dL (8.4-10.2); Carbon Dioxide 30 mmol/L (22-29); Chloride 109 mmol/L (96-108); Cholesterol 208 mg/dL (<200); Estimated Glomerular Filt Rate > 60; Glucose Random 92 mg/dL (60-115); HDL Cholesterol 79 mg/dL (>40); LDL Cholesterol Calculated 118 mg/dL (<100); Potassium 3.8 mmol/L (3.3-5.1); Sodium 144 mmol/L (135-145); TSH reflex Free T4 9.73 uIU/mL (0.32-4.0); Triglycerides 59 mg/dL (<150)
[2023-08-06 14:35] LABS: Free T4 (Free Thyroxine) 0.71 ng/dL (0.71-1.85)
== END 2023-08-06 08:59 | disposition home or self-care (01) ==
LOC: HO.HHCL 08:58
PROVIDERS: Visit Provider Nurse Practitioner Primary Care
DX: Z00.00 Encounter for general adult medical examination without abnormal findings (principal); T59.811A Toxic effect of smoke, accidental (unintentional), initial encounter; J43.9 Emphysema, unspecified; E78.00 Pure hypercholesterolemia, unspecified; E03.8 Other specified hypothyroidism; E06.3 Autoimmune thyroiditis; J30.89 Other allergic rhinitis; I10 Essential (primary) hypertension; X58.XXXA Exposure to other specified factors, initial encounter; Y93.9 Activity, unspecified; Y92.9 Unspecified place or not applicable; Y99.9 Unspecified external cause status
CPT/HCPCS: 36415; 71046; 80048; 80061; 84439; 84443; 85025

== ENCOUNTER 2023-08-07 08:50 | Outpatient (REF) | payer OTHER, SELFPAY | END 2023-08-07 08:51 | disposition home or self-care (01) | LOC: HO.LAB 08:50 | PROVIDERS: Visit Provider Emergency Medicine | DX: T59.811A Toxic effect of smoke, accidental (unintentional), initial encounter (principal); X58.XXXA Exposure to other specified factors, initial encounter; Y93.9 Activity, unspecified; Y92.9 Unspecified place or not applicable; Y99.9 Unspecified external cause status | CPT/HCPCS: 82375 ==

== ENCOUNTER 2023-09-19 08:57 | Outpatient (AMB) | payer OTHER, SELFPAY ==
--- NOTE | 2023-09-19 09:01 | MHC.OFFVIS ---
Vital Signs 09/19/23 09:08 Height 5 ft 3 in Weight 141 lb 1.533 oz BMI 25.0 BP 131/72 Blood Pressure Location Lt brachial Position Sitting Pulse 80 Intake Visit Reasons: f/u r/s from 08/25 Intake Note: Angela presents to in office 6 months follow up of CIC. CC: Patient states that she feels like she has something from her left abdominal area and it hurts sometimes. Denies other GI symptoms. Automatic Nailing Machine Feeder Required: Yes Accompanied by: Family/Other Allergies Penicillins [PENICILLINS] Allergy (Intermediate, Verified 09/19/23 09:14) RASH penicillin V Allergy (Unknown, Verified 09/19/23 09:14) anaphylaxis enviromental allergies Allergy (Unknown, Uncoded 09/19/23 09:14) Unknown HPI HPI f/u r/s from 08/25: Details: Assessment & Plan (1) Chronic idiopathic constipation: Code(s): K59.04 - Chronic idiopathic constipation Plan: Swedish #[employer] Live She never received the celebrex for her thoracic back pain, so we can not evaluate how much this would help with her right flank pain. She says she spoke with Dr. Redman and he wanted an US, but she has had all of this imaging w/o any GI or other cause for her pain. She has had negative US and CT scans over the past year. I will refer her to pain management. 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 But she is not crazy about this idea and she is fearful about this. She has asthma/COPD and this causes her concern. She continues to struggle with understanding the concept of radicular pain that manifests in the abdomen. She continues with her Amitiza and it continues to help with her CIC. ROV 6 mos. (2) Thoracic spondylosis: Code(s): M47.814 - Spondylosis without myelopathy or radiculopathy, thoracic region (3) Thoracic back pain: Comment: rt side to abd Code(s): M54.6 - Pain in thoracic spine Orders: Referrals Pain Management Referral M47.814 - Spondylosis without myelopathy or radiculopathy, thoracic region, M54.6 - Pain in thoracic spine Medications: Refilled celecoxib (Celebrex) 200 mg PO BID 60 caps 3RF M47.814 - Spondylosis without myelopathy or radiculopathy, thoracic region TODAY'S VISIT Swedish # [id number] Julio Fairchild has not been seen since 01/2023. She is here today with 2 family members. She still has discomfort in the RUQ that is rt thoracic origin. 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 But she is not crazy about this idea and she is fearful about this. She has asthma/COPD and this causes her concern. She has had negative US and CT scans. She again states that the pain is manifest with positional changes such as bending and twisting. It is described as a ball, or a stick sharp in there. She continues to move her bowels well with the Amitiza 8mcg bid. ROV 6 mos. PFSH Surgical History H/O: hysterectomy H/O tubal ligation History of cholecystectomy H/O colonoscopy Family History Family/Other Breast cancer Social History Alcohol intake: former Patient Tobacco Use Status: Former Tobacco user service: No Review of Systems Const Denies fatigue, Denies fever(s), Denies night sweats, Denies poor appetite and Denies weight loss Eyes Details: glasses Reports requires corrective lenses ENT Reports Normal hearing present, Denies dental pain, Denies dysphagia, Denies hearing loss, Denies mouth pain, Denies odynophagia, Denies throat swelling, Denies tongue swelling and Reports other (Dentition adequate) Card Reports no additional complaints Resp Reports no additional complaints GI Details: Denies abdominal pain, Denies melena, Reports bloating, Denies hematochezia, Reports constipation, Denies GI cramping, Denies dysphagia, Denies excessive flatus, Denies early satiety, Denies heartburn, Denies diarrhea, Denies nausea, Denies odynophagia, Denies vomiting and Denies hematemesis Musc Reports back pain Skin/Breast Denies pruritus, Denies lesions, Denies rash and Denies jaundice Neuro Reports Normal hearing present and Denies Abnormal speech present Endo Denies fatigue Aller/Immun Denies throat swelling and Denies tongue swelling Physical Exam Vital Signs: Last Vital Signs Pulse 80 09/19/23 09:08 BP 131/72 09/19/23 09:08 BMI result Body Mass Index 25.0 Const General: cooperative, no acute distress, well developed and well groomed Nutritional Appearance: average body habitus and well nourished Orientation/consciousness: oriented to person, oriented to place and oriented to time Limitations: language barrier HEENT Head: Yes normocephalic and Yes atraumatic Eyes General: appearance normal, both eyes and all related structures Pupils: Equal, round and reactive pupils present Neck Neck: Yes normal visual inspection and Yes no lymphadenopathy Thyroid: Thyroid normal Resp Effort & Inspection: normal respiratory effort and able to speak in complete sentences Auscultation: clear to auscultation bilaterally Cardio Rate: regular rate Rhythm: regular rhythm Heart sounds: Normal, physiologic split S2 sound present Peripheral pulses: radial pulses present and posterior tibial pulses present GI Inspection: No distended and No Abdominal panniculus present Palpation (GI): Soft to palpation, nontender, no guarding, not rigid and No hepatosplenomegaly present Percussion: Yes normal to percussion Auscultation: normal bowel sounds Rectal Exam - Female: deferred Skin General skin exam: no rashes or lesions noted, turgor normal, skin not dry, no jaundice, No spider nevi and no striae Rashes: no rashes Nails: normal Neuro General: oriented to person, oriented to place and oriented to time Cranial nerves: Yes Equal, round and reactive pupils present and Yes Normal hearing present Speech: No Abnormal speech present Extrem General: Yes normal to inspection, No clubbing, No cyanosis and No edema Psych Appearance: grossly normal and well kempt Mental Status: mental status grossly normal Speech and movement: Normal speech and movement present Affect: normal affect Attitude: cooperative Thought process: Normal thought process present and not confabulating Thought content: Normal thought content present Insight: Limited insight present (Psych) Judgement: Limited judgement present (Psych) Assessment & Plan Assessment & Plan (1) Chronic idiopathic constipation: Code(s): K59.04 - Chronic idiopathic constipation Category: Medical (2) Thoracic back pain: Comment: rt side to abd Code(s): M54.6 - Pain in thoracic spine Category: Medical (3) Thoracic spondylosis: Code(s): M47.814 - Spondylosis without myelopathy or radiculopathy, thoracic region Category: Medical Plan Swedish # [id number] Julio Pt has not been seen since 01/2023. She is here today wtih 2 family members. She still has discomfort in the RUQ that is rt thoracic origin. 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 But she is not crazy about this idea and she is fearful about this. She has asthma/COPD and this causes her concern. She has had negative US and CT scans. She again states that the pain is manifest with positional changes such as bending and twisting. It is described as a ball, or a stick sharp in there. She continues to move her bowels well with the Amitiza 8mcg bid. ROV 6 mos. Medications: Refilled simethicone after meals 180 mg PO QID 120 caps 3RF 30 days K59.04 - Chronic idiopathic constipation lubiprostone 8 mcg PO BID 180 caps 0RF K59.04 - Chronic idiopathic constipation Coding Level of Care Code Est Pt Level 3 (22453) Diagnoses Chronic idiopathic constipation K59.04 Thoracic back pain M54.6 Thoracic spondylosis M47.814
[2023-09-19 09:08] VITALS: BP 131/72; PULSE 80; BMI 25.0
== END 2023-09-19 09:46 | disposition home or self-care (01) ==
PROVIDERS: PCP Nurse Practitioner Primary Care; Visit Provider Nurse Practitioner
DX: K59.04 Chronic idiopathic constipation (principal); M54.6 Pain in thoracic spine; M47.814 Spondylosis without myelopathy or radiculopathy, thoracic region
CPT/HCPCS: 99213

== ENCOUNTER → 2023-09-19 08:57 | Outpatient (BNVA) | payer OTHER, SELFPAY | PROVIDERS: PCP Nurse Practitioner Primary Care; Visit Provider Nurse Practitioner | DX: K59.04 Chronic idiopathic constipation (principal); M47.814 Spondylosis without myelopathy or radiculopathy, thoracic region; M54.6 Pain in thoracic spine | CPT/HCPCS: 99212 ==

== ENCOUNTER 2023-12-26 11:27 | Outpatient (REF) | payer OTHER, SELFPAY ==
[2023-12-26 14:05] LABS: TSH reflex Free T4 12.64 uIU/mL (0.32-4.0)
[2023-12-26 15:03] LABS: Free T4 (Free Thyroxine) 0.57 ng/dL (0.71-1.85)
== END 2023-12-26 11:28 | disposition home or self-care (01) ==
LOC: HO.HHCL 11:27
PROVIDERS: Visit Provider Nurse Practitioner Primary Care
DX: E03.8 Other specified hypothyroidism (principal); E06.3 Autoimmune thyroiditis
CPT/HCPCS: 36415; 84439; 84443

== ENCOUNTER 2024-03-20 10:23 | Outpatient (AMB) | payer OTHER, SELFPAY ==
--- NOTE | 2024-03-20 10:33 | MHC.OFFVIS ---
Vital Signs 03/20/24 10:39 Height 5 ft 3 in Weight 140 lb 3.424 oz BMI 24.8 BP 131/59 L Blood Pressure Location Lt brachial Position Sitting Pulse 66 Intake Visit Reasons: 6 month follow up CIC Intake Note: Angela returns to in office 6 months follow up of CIC. CC: Patient c/o constant RUQ abdominal pain and burning sensation on that side. She states that she began to have that pain since her gallbladder was removed but has gotten worse with time. Allergies Penicillins [PENICILLINS] Allergy (Intermediate, Verified 03/20/24 10:48) RASH penicillin V Allergy (Unknown, Verified 03/20/24 10:48) anaphylaxis enviromental allergies Allergy (Unknown, Uncoded 09/19/23 09:14) Unknown HPI HPI 6 month follow up CIC: Details: Assessment & Plan (1) Chronic idiopathic constipation: Code(s): K59.04 - Chronic idiopathic constipation Category: Medical (2) Thoracic back pain: Comment: rt side to abd Code(s): M54.6 - Pain in thoracic spine Category: Medical (3) Thoracic spondylosis: Code(s): M47.814 - Spondylosis without myelopathy or radiculopathy, thoracic region Category: Medical Plan [place] # [id number] Julio Fairchild has not been seen since 01/2023. She is here today wtih 2 family members. She still has discomfort in the RUQ that is rt thoracic origin. 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 But she is not crazy about this idea and she is fearful about this. She has asthma/COPD and this causes her concern. She has had negative US and CT scans. She again states that the pain is manifest with positional changes such as bending and twisting. It is described as a ball, or a stick sharp in there. She continues to move her bowels well with the Amitiza 8mcg bid. ROV 6 mos. Medications: Refilled simethicone after meals 180 mg PO QID 120 caps 3RF 30 days K59.04 - Chronic idiopathic constipation lubiprostone 8 mcg PO BID 180 caps 0RF K59.04 - Chronic idiopathic constipation TODAY'S VISIT [place] # She is no longer moving her bowels well utilizing Amitiza at 8 micro g twice a day so will move her to 24 micro g and she can titrate to either once or twice a day. She continues on her simethicone for her bloating. Return office visit in 6 8 weeks [facility] Surgical History H/O: hysterectomy H/O tubal ligation History of cholecystectomy H/O colonoscopy Family History Family/Other Breast cancer Social History Alcohol intake: former Patient Tobacco Use Status: Former Tobacco user service: No Review of Systems Const Denies fatigue, Denies fever(s), Denies night sweats, Denies poor appetite and Denies weight loss ENT Reports Normal hearing present, Denies dental pain, Denies dysphagia, Denies hearing loss, Denies mouth pain, Denies odynophagia, Denies throat swelling, Denies tongue swelling and Reports other (Dentition adequate) Card Reports no additional complaints Resp Reports no additional complaints GI Details: Reports abdominal pain, Denies melena, Denies bloating, Denies hematochezia, Denies constipation, Denies GI cramping, Denies dysphagia, Denies excessive flatus, Denies early satiety, Denies heartburn, Reports diarrhea, Denies nausea, Denies odynophagia, Denies vomiting and Denies hematemesis Skin/Breast Denies pruritus, Denies lesions, Denies rash and Denies jaundice Neuro Reports Normal hearing present and Denies Abnormal speech present Endo Denies fatigue Aller/Immun Denies throat swelling and Denies tongue swelling Physical Exam Vital Signs: Last Vital Signs Pulse 66 03/20/24 10:39 BP 131/59 L 03/20/24 10:39 BMI result Body Mass Index 24.8 Const General: cooperative, no acute distress, well developed and well groomed Nutritional Appearance: average body habitus and well nourished Orientation/consciousness: oriented to person, oriented to place and oriented to time Limitations: language barrier HEENT Head: Yes normocephalic and Yes atraumatic Eyes General: appearance normal, both eyes and all related structures Pupils: Equal, round and reactive pupils present Neck Neck: Yes normal visual inspection and Yes no lymphadenopathy Thyroid: Thyroid normal Resp Effort & Inspection: normal respiratory effort and able to speak in complete sentences Auscultation: clear to auscultation bilaterally Cardio Rate: regular rate Rhythm: regular rhythm Heart sounds: Normal, physiologic split S2 sound present Peripheral pulses: radial pulses present and posterior tibial pulses present GI Inspection: No distended and No Abdominal panniculus present Palpation (GI): Soft to palpation, nontender, no guarding, not rigid and No hepatosplenomegaly present Percussion: Yes normal to percussion Auscultation: normal bowel sounds Rectal Exam - Female: deferred Skin General skin exam: no rashes or lesions noted, turgor normal, skin not dry, no jaundice, No spider nevi and no striae Rashes: no rashes Nails: normal Neuro General: oriented to person, oriented to place and oriented to time Cranial nerves: Yes Equal, round and reactive pupils present and Yes Normal hearing present Speech: No Abnormal speech present Extrem General: Yes normal to inspection, No clubbing, No cyanosis and No edema Psych Appearance: grossly normal and well kempt Mental Status: mental status grossly normal Speech and movement: Normal speech and movement present Affect: normal affect Attitude: cooperative Thought process: Normal thought process present and not confabulating Thought content: Normal thought content present Insight: Limited insight present (Psych) Judgement: Limited judgement present (Psych) Assessment & Plan Assessment & Plan (1) Chronic idiopathic constipation: Code(s): K59.04 - Chronic idiopathic constipation Category: Medical Plan [place] # She is no longer moving her bowels well utilizing Amitiza at 8 micro g twice a day so will move her to 24 micro g and she can titrate to either once or twice a day. She continues on her simethicone for her bloating. Return office visit in 6 8 weeks Medications: New lubiprostone (Amitiza) 24 mcg PO BID 60 caps 3RF 30 days K59.04 - Chronic idiopathic constipation On Hold lubiprostone Hold Comment: Doctor's Order 8 mcg PO BID 180 caps 0RF K59.04 - Chronic idiopathic constipation Coding Level of Care Code Est Pt Level 3 (01153) Diagnoses Chronic idiopathic constipation K59.04
[2024-03-20 10:39] VITALS: BP 131/59; PULSE 66; BMI 24.8
== END 2024-03-20 11:10 | disposition home or self-care (01) ==
PROVIDERS: PCP Nurse Practitioner Primary Care; Visit Provider Nurse Practitioner
DX: K59.04 Chronic idiopathic constipation (principal)
CPT/HCPCS: 99499

== ENCOUNTER → 2024-03-20 10:23 | Outpatient (BNVA) | payer OTHER, SELFPAY | PROVIDERS: PCP Nurse Practitioner Primary Care; Visit Provider Nurse Practitioner ==

== ENCOUNTER 2024-05-20 15:54 | Outpatient (REF) | payer OTHER, SELFPAY ==
[2024-05-20 18:20] LABS: Alanine Aminotransferase 12 U/L (0-31); Albumin Level 4.2 g/dL (3.5-5.0); Alkaline Phosphatase 57 U/L (39-117); Aspartate Amino Transferase 18 U/L (5-31); Bilirubin Direct 0.1 mg/dL (0.0-0.5); Bilirubin Total 0.3 mg/dL (0.0-1.0); Total Protein 6.9 g/dL (6.5-8.0)
[2024-05-20 18:33] LABS: TSH reflex Free T4 7.72 uIU/mL (0.32-4.0)
[2024-05-20 19:49] LABS: Free T4 (Free Thyroxine) 0.75 ng/dL (0.71-1.85)
== END 2024-05-20 15:55 | disposition home or self-care (01) ==
LOC: HO.HHCL 15:54
PROVIDERS: Visit Provider Nurse Practitioner Primary Care
DX: R10.11 Right upper quadrant pain (principal); E06.3 Autoimmune thyroiditis
CPT/HCPCS: 36415; 80076; 84439; 84443

== ENCOUNTER 2025-03-02 11:47 | Outpatient (REF) | payer OTHER, SELFPAY ==
[2025-03-02 13:02] LABS: MANUAL DIFF FLAG NO
[2025-03-02 13:10] LABS: Hematocrit 38.8 % (37.0-47.0); Hemoglobin 12.6 g/dl (12.0-16.0); Imm Gran Abs Auto 0.01 X10*3/uL (0.00-0.03); Imm Gran Pct Auto 0.2 % (0.0-0.4); Lymphocytes Absolute Auto 1.7 X10*3/uL (1.2-4.9); Mean Corpuscular HGB Conc 32.5 g/dl (31.0-35.0); Mean Corpuscular Hemoglobin 31.5 pg (27.0-33.0); Mean Corpuscular Volume 97.0 fL (80.0-98.0); NRBC Abs Auto 0.000 X10*3/uL (0.0-0.012); NRBC Pct Auto 0.0 /100WBC (0.0-0.2); Platelet Count 258 X10*3/uL (160-400); Red Blood Count 4.00 X10*6/uL (4.20-5.50); White Blood Count 6.3 X10*3/uL (4.8-10.8)
[2025-03-02 13:52] LABS: Vitamin B12 1407 pg/mL (200-900)
[2025-03-02 14:38] LABS: Free T4 (Free Thyroxine) 0.73 ng/dL (0.71-1.85)
--- OUTSIDE RECORDS SUMMARY | 2025-03-02 15:13 | XMS_ITS | Encounter Summary ---
Author Organization [employer] Address [address] [facility] 7[address] [place] [address] Care Team Providers Care Gear Repair Supervisor Name Role Phone Latisha Chawla Primary Care Provider [phone] Reason for Visit * Reason Onset Date Comments Med Refill 11/11/2023 Encounter Details Date Type Department Care Team ([facility] st Contact Info) Description 11/11/2023 Telephone [facility] [address] [place] [address] Latisha Chawla ANP [address] [place] [address] Med Refill Social History Tobacco Use Types Packs/Day Years Used Date Smoking Tobacco: Never Passive Smoke Exposure: Never Smokeless Tobacco: Never Alcohol Use Standard Drinks/Week Comments Not Currently 0 (1 standard drink = 0.6 oz pur e alcohol) PHQ-2 Answer Date Recorded Patient Health Questionnaire-2 Score 0 12/31/2022 Housing Stability Answer Date Recorded What is your housing situation today? I have shaina murguia 03/08/[address] you li ve. Do you have problems with any of the following? None of the above 03/08/2023 Food Insecurity Answer Date Recorded Within the past 12 months, y ou worried that your food would run out before you got money to buy more: Never True 03/08/2023 Within the past 12 months,th e food you bought just didn't last and you didn't have enough money to get more: Never True 07/2022 Transportation Answer Date Recorded In the past 12 months, has l ack of transportation kept you from medical appts, meetings, work or from getting things needed for daily living? No 03/08/2023 Utilities Answer Date Recorded In the past 12 months, has t he electric, gas, oil or water company threatened to shut off services in your home? No 03/08/2023 Depression Answer Date Recorded Patient Health Questionnaire-2 Score 0 12/31/2022 Comments Unknown Sex and Gender Information Value Date Recorded Sex Assigned at Female 03/05/2022 10:14 AM EDT Legal Sex Female 10:14 AM EDT Gender Identity Female 03/05/2022 10:14 AM EDT Sexual Orientation Straight 03/05/2022 10 :14 AM EDT documented as of this encounter Miscellaneous Notes * Telephone Encounter - Diamond Lopez RN - 11/11/2023 4:03 PM EDT Refill too soon. Pt last filled 28 day supply on 10/19/23. Pt is due on 11/16/23. Will postpone message. * Telephone Encounter - Dahlia Michaels - 11/11/2023 11:48 AM EDT TC from pt requesting medication refill. Medications needing refill : oxyCODONE (Roxicodone) 5 MG immediate release tablet To be sent to: [id number] [place], [place] - [address] [place] [address] documented in this encounter Plan of Treatment Not on file documented as of this encounter Visit Diagnoses Not on filedocumented in this encounter Care Teams Gear Repair Supervisor Relationship Specialty Start Date End Date Latisha Chawla ANP [address] [place] [address] PCP - General Family Medicine 02/09/22 documented as of this encounter
--- OUTSIDE RECORDS SUMMARY | 2025-03-02 15:13 | XMS_ITS | Encounter Summary ---
Author Organization [employer] Address [address] [facility] 7[address] [place] [address] Care Team Providers Care French Translator Name Role Phone Latisha Chawla Primary Care Provider [phone] Reason for Visit * Reason Comments Med Refill Encounter Details Date Type Department Care Team ([facility] st Contact Info) Description 06/04/[address] [facility] [address] [place], [place] [id number] Latisha Chawla ANP [address] [place], [place] [id number] Non-seasonal allergic rhinitis, unspecified trigger Social History Tobacco Use Types Packs/Day Years Used Date Smoking Tobacco: Never Smokeless Tobacco: Never Alcohol Use Standard [...] t he electric, gas, oil or water [employer] threatened to shut off services in your home? No 03/08/2023 Depression Answer Date Recorded Patient Health Questionnaire-2 Score 0 12/31/2022 Comments Unknown Sex and Gender Information Value Date Recorded Sex Assigned at Female 03/05/2022 10:14 AM EDT Legal Sex Female 10:14 AM EDT Gender Identity Female 03/05/2022 10:14 AM EDT Sexual Orientation Straight 03/05/2022 10 :14 AM EDT documented as of this encounter Plan of Treatment Not on file documented as of this encounter Visit Diagnoses Diagnosis Non-seasonal allergic rhinitis, unspecified trigger documented in this encounter Care Teams French Translator Relationship Specialty Start Date End Date Latisha Chawla ANP [address] [place] [id number] PCP - General Family Medicine 02/09/22 documented as of this encounter
--- OUTSIDE RECORDS SUMMARY | 2025-03-02 15:13 | XMS_ITS | Encounter Summary ---
Author Organization [employer] Address [address] [facility] 7[address] [place] [address] Care Team Providers Care Brusher Warp Name Role Phone Latisha Chawla Primary Care Provider [phone] Reason for Visit * Reason Onset Date Comments Referral 05/15/2022 Encounter Details Date Type Department Care Team ([facility] st Contact Info) Description 05/15/2022 Telephone [facility] [address] [place] [address] Latisha Chawla ANP [address] [place] [address] Referral Social History Tobacco Use Types Packs/Day Years Used Date Smoking Tobacco: Never Assessed Comments Unknown Sex and Gender Information Value Date Recorded Sex Assigned at Female 03/05/2022 10:14 AM EDT Legal Sex Female 10:14 AM EDT Gender Identity Female 03/05/2022 10:14 AM EDT Sexual Orientation Straight 03/05/2022 10 :14 AM EDT documented as of this encounter Miscellaneous Notes * Telephone Encounter - Cami Baker RN - 05/15/2022 3:29 PM EST 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 He has since retired. Pt needs new referral. Granddaughter requesting closest to [place] if possible. * Telephone Encounter - Dahlia Michaels - 05/15/2022 2:40 PM EST Tc from granddaughter Nilsa requesting for continuous miner operator helper referral to be made in [facility]. documented in this encounter Plan of Treatment Not on file documented as of this encounter Visit Diagnoses Not on filedocumented in this encounter Care Teams Brusher Warp Relationship Specialty Start Date End Date Latisha Chawla ANP [address] [place] [address] PCP - General Family Medicine 02/09/22 documented as of this encounter
--- OUTSIDE RECORDS SUMMARY | 2025-03-02 15:13 | XMS_ITS | Encounter Summary ---
Author Organization [employer] Address [address] [facility] 7t [place] [address] Care Team Providers Care Home Mortgage Disclosure Act Specialist Name Role Phone Latisha Chawla Primary Care Provider [phone] Reason for Visit * Reason Onset Date Comments Medication Question 05/15/2022 Encounter Details Date Type Department Care Team ([facility] st Contact Info) Description 05/15/2022 Telephone [facility] [address] [place] [address] Latisha Chawla ANP [address] [place] [address] Medication Question Social History Tobacco Use Types Packs/Day Years Used Date Smoking Tobacco: Never Assessed Comments Unknown Sex and Gender Information Value Date Recorded Sex Assigned at Female 03/05/2022 10:14 AM EDT Legal Sex Female 10:14 AM EDT Gender Identity Female 03/05/2022 10:14 AM EDT Sexual Orientation Straight 03/05/2022 10 :14 AM EDT documented as of this encounter Miscellaneous Notes * Telephone Encounter - YUNG Brumfield - 05/15/2022 11:30 PM EST Sergio Bennett, can you see status of PA for synthroid brand name medically necessary for this pt? She has side effects from generic. thanks * Telephone Encounter - YUNG Brumfield - 05/15/2022 11:29 PM EST We have been trying to get brand name Synthroid covered but suspect PA not yet approved. * Telephone Encounter - Cami Baker RN - 05/15/2022 3:36 PM EST Pt's granddaughter stating at last appt 03/15 they were told pt would be switched from levothyroxine to a different medication. I see no mention of this in [facility], only that she feels like she has to clear her throat when she takes it. Please advise. * Telephone Encounter - Dahlia Michaels - 05/15/2022 2:33 PM EST Tc from pt granddaughter melissa requesting a call back regarding pt pt medication levothyroxine . States on last visit pcp was going prescribe something different . Please call to clarify . documented in this encounter Plan of Treatment Not on file documented as of this encounter Visit Diagnoses Not on filedocumented in this encounter Care Teams Home Mortgage Disclosure Act Specialist Relationship Specialty Start Date End Date Latisha Chawla ANP [address] [place] [id number] PCP - General Family Medicine 02/09/22 documented as of this encounter
--- OUTSIDE RECORDS SUMMARY | 2025-03-02 15:13 | XMS_ITS | Encounter Summary ---
Author Organization [employer] Address [address] [facility] 7t [place] [address] Care Team Providers Care Associate Professor Of Medicine Name Role Phone Latisha Chawla Primary Care Provider [phone] Reason for Visit * Reason Onset Date Comments Med Refill 01/16/2024 Encounter Details Date Type Department Care Team ([facility] st Contact Info) Description 01/16/2024 Telephone [facility] MEDICINE [address] [place] [address] Latisha Chawla ANP [address] [place] [address] Med Refill Social History Tobacco Use Types [...] encounter Miscellaneous Notes * Telephone Encounter - Vinod Bee - 01/16/2024 11:44 AM EDT TC from pt requesting medication refill. Medications needing refill : oxyCODONE (Roxicodone) 5 MG immediate release tablet To be sent to: [id number] - [place], [place] - [address] [facility] documented in this encounter Plan of Treatment Not on file documented as of this encounter Visit Diagnoses Not on filedocumented in this encounter Care Teams Associate Professor Of Medicine Relationship Specialty Start Date End Date Latisha Chawla ANP [address] [place] [phone] PCP - General Family Medicine 02/09/22 documented as of this encounter
--- OUTSIDE RECORDS SUMMARY | 2025-03-02 15:13 | XMS_ITS | Encounter Summary ---
Author Organization [employer] Address [address] [facility] 7t [place] [address] Care Team Providers Care Marker Hand Name Role Phone Latisha Chawla Primary Care Provider [phone] Reason for Visit * Reason Onset Date Comments Med Refill 12/16/2023 Encounter Details Date Type Department Care Team ([facility] st Contact Info) Description 12/16/2023 Telephone [facility] MEDICINE [address] [place] [address] Latisha Chawla ANP [address] [place] [address] Med Refill Social History Tobacco Use Types [...] encounter Miscellaneous Notes * Telephone Encounter - Cruz Palencia - 12/16/2023 11:38 AM EDT TC from pt requesting medication refill. Medications needing refill: oxyCODONE (Roxicodone) 5 MG immediate release tablet To be sent to: [id number] - [place], [place] - [address] [facility] documented in this encounter Plan of Treatment Not on file documented as of this encounter Visit Diagnoses Not on filedocumented in this encounter Care Teams Marker Hand Relationship Specialty Start Date End Date Latisha Chawla ANP [address] [place] [phone] PCP - General Family Medicine 02/09/22 documented as of this encounter
--- OUTSIDE RECORDS SUMMARY | 2025-03-02 15:13 | XMS_ITS | Clinical Summary ---
Author Organization [employer] Address [address] [facility] 7t [place] [address] Care Team Providers Care Group Work Program Director Name Role Phone Latisha Chawla Primary Care Provider [phone] Allergies Active Allergy Reactions Criticality Noted Date Comments Onion Diarrhea,Nausea And Vomiting 022 Penicillins 11/28/2011 Medications * This document contains information received from the source organization and may not represent a complete record from that organization. acetaminophen (Tylenol) 325 MG tablet take 1 tablet by oral route every 4 hours as needed 1 Active dicyclomine (Bentyl) 10 MG capsule TAKE 1 CAPSULE BY MOUTH THREE TIMES DAILY NEEDED 2 Active lubiprostone (Amitiza) 8 MCG capsule TAKE 1 CAPSULE BY MOUTH TWICE DAILY 3 Active naloxone (Narcan) 4 mg/0.1 mL nasal spray spray 0.1 milliliter by intranasal route in 1 nostril may repeat dose every 2-3 minutes as needed alternating nostrils with each dose 1 Active Trulance tablet tablet TAKE 1 TABLET BY MOUTH EVERY MORNING WITH GLASS OF WATER 2 Active polyethylene glycol, PEG, 3350 (Glycolax) 17 GM/SCOOP powder MIX AND TAKE 17 GRAMS BY MOUTH DAILY DIRECTED 2 Active Deep Sea Nasal [place] 0.65 % nasal spray INSTILL 1 SPRAY IN EACH NOSTRIL NEEDED 2 Active Simethicone Ultra Strength 180 MG capsule TAKE 1 CAPSULE BY MOUTH FOUR TIMES DAILY FOR 30 DAYS AFTER MEALS 2 Active traZODone (Desyrel) 50 MG tablet TAKE 1 TO 2 TABLETS BY MOUTH AT BEDTIME NEEDED FOR SLEEP 2 Active Calcium Carb-Cholecalcif cali 600-10 MG-MCG tablet Take 1 tablet by mouth 2 times daily. 60 tablet 5 3 Active amLODIPine (Norvasc) 5 MG tablet Take 1 tablet (5 mg) by mouth in the morning. 90 tablet 1 3 Active fluticasone (Flonase) 50 MCG/ACT nasal sprayIndications :Non-seasonal allergic rhinitis, unspecified trigger USE 1 TO 2 SPRAYS IN EACH NOSTRIL NEEDED. SHAKE GENTLY. PRIME PUMP BEFORE FIRST USE. AFTER USE CLEAN TIP AND REPLACE TOP 16 g 4 Active montelukast (Singulair) 10 MG tabletIndication s:Chronic obstructive pulmonary disease, unspecified COPD type (CMS/HCC) ([facility]) TAKE 1 TABLET BY MOUTH EVERY NIGHT FOR ASTHMA 90 tablet 1 4 Active albuterol (2.5 MG/3ML) 0.083% nebulizer solution USE 3 ML VIA NEBULIZER EVERY 4 HOURS NEEDED 75 mL 1 5 Active Spacer/Aero-Hold ing Chambers (OptiChamber Shruti) misc 1 each every 4 (four) hours if needed (asthma). 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 90 tablet 3 5 01/19/20 26 Active Active Problems Problem Noted Date Diagnosed Date Anxiety 11/27/2024 Hoarseness 11/27/2024 Needs assistance while at home 11/27/2024 MDD (major depressive disord er), recurrent episode, moderate ([facility]/HCC) 11/27/2024 Assessment & Plan (11/30/2024 9:39 AM EDT): During IBH Consult Angela presenting with depressed mood, Tearful, crying spells , change in appetite or weight reduce appetite, changes in sleep difficulty falling asleep and difficulty staying asleep , fatigue/loss of energy, worthlessness, excessive worry/anxiety, difficulty controlling worry, anxiety/worry associated to restlessness and/or feeling keyed-up/On edge , easily fatigued , difficulty concentrating and/or mind going blank , irritability, muscle tension , and sleep disturbance difficulty falling asleep and difficulty staying asleep , Fear , and sense of dread , and Flashbacks, Intrusive trauma memories and thoughts, and Hypervigilance; for a period of 18+ mo, for some symptoms in the context of illness or family illness and housing. Pt reported her symptoms are not manageable on her own and keep increasing affecting her mental health. She's going through different stressors and feels overwhelmed. Currently doing medication management with Dr. Garcia from [facility]. Pt reported hx of trauma. More information needed to rule out diagnosis. Pt lives alone but receives help from her adult children. VAIBHAV (generalized anxiety disorder) 11/27/2024 Assessment & Plan (11/30/2024 9:39 AM EDT): During IBH Consult Angela presenting with depressed mood, Tearful, crying spells , change in appetite or weight reduce appetite, changes in sleep difficulty falling asleep and difficulty staying asleep , fatigue/loss of energy, worthlessness, excessive worry/anxiety, difficulty controlling worry, anxiety/worry associated to restlessness and/or feeling keyed-up/On edge , easily fatigued , difficulty concentrating and/or mind going blank , irritability, muscle tension , and sleep disturbance difficulty falling asleep and difficulty staying asleep , Fear , and sense of dread , and Flashbacks, Intrusive trauma memories and thoughts, and Hypervigilance; for a period of 18+ mo, for some symptoms in the context of illness or family illness and housing. Pt reported her symptoms are not manageable on her own and keep increasing affecting her mental health. She's going through different stressors and feels overwhelmed. Currently doing medication management with Dr. Garcia from [facility]. Pt reported hx of trauma. More information needed to rule out diagnosis. Pt lives alone but receives help from her adult children. Aortic valve stenosis 10/31/2021 Osteopenia 07/07/2021 Overview (08/30/2022): DEXA 07/05/21 IMPRESSION: 1. DIAGNOSIS: Osteopenia based on the lowest T-score value of -1.7 in the femoral neck applying World Health Organization criteria. 2. 10-YEAR FRACTURE RISK PREDICTION, FRAX: Major osteoporotic fracture (clinical spine, forearm, hip or shoulder) 12.4%. Hip fracture 2.8%. 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 Allergic rhinitis 12/08/2012 Pure hypercholesterolemia 11/29/2011 Benign hypertension 05/06/1959 Chronic obstructive lung disease 05/06/1959 Depressive disorder 05/06/1959 Disorder of rotator cuff 05/06/1959 Encounters * This document contains information received from the source organization and may not represent a complete record from that organization. Date Type Department Care Team Description 03/02/2025 Orders Only [facility] MEDICINE [address] [place] [phone] Latisha Chawla ANP 02/22/2025 Telephone [facility] [address] [place] [phone] Latisha Chawla ANP HCP paperwork request 01/26/2025 11:00 AM EDT Clinical Support [address] [address] Cami Arteaga, LORE Memory loss 01/26/2025 Travel 01/18/2025 11:00 AM EDT Office Visit [address] [address] Latisha Chawla ANP MDD (major depressive disorder), recurrent episode, moderate (CMS/HCC) (Primary Dx); VAIBHAV (generalized anxiety disorder); Benign hypertension; Pure hypercholesterolemia ; 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; Osteopenia, unspecified location; Memory loss 01/18/2025 Travel 01/15/[address] [address] Latisha Chawla ANP chart prep 01/01/[address] [address] Latisha Chawla ANP 12/10/[address] [address] Latisha Chawla ANP Appointment Request 12/08/[address] [address] Latisha Chawla ANP Call Back Request from Last 3 Months Immunizations Immunization Administration Dates Next Due Influenza High-dose Quadriva lent Preservative Free 02/09/2022,02/15/2021 Influenza Quadrivalent Adjuvanted 01/28/2020 Influenza injectable quadriv alent IIV4 with preservative 02/17/2016,02/17/2015 Influenza injectable quadriv alent preservative free 01/31/2023,02/25/2019,02/21/2017 Influenza, High Dose Seasona l, Preservative Free 03/05/2018 Influenza, IIV3, injectable 02/17/2014, 1 Influenza, Split (incl. ella fied surface antigen) 01/12/2013,01/25/2012 Influenza, trivalent, adjuvanted 03/20/2024 Pneumococcal Conjugate PCV 20 05/29/2022 Pneumococcal Polysaccharide PPSV23 03/01/2020,,11/30/1996 TD (adult), 2 Lf tetanus tox oid, preservative free, adsorbed 03/24/2008,11/30/1996 Tdap 03/01/2020 Zoster, live 07/14/2013 Social History Tobacco Use Types Packs/Day Years Used Date Smoking Tobacco: Never Passive Smoke Exposure: Never Smokeless Tobacco: Never Tobacco Cessation:Counseling Given: Not Answered Alcohol Use Standard Drinks/Week Comments Not Currently 0 (1 standard drink = 0.6 oz pur e alcohol) Depression Answer Date Recorded Patient Health Questionnaire-9 Score 14 11/27/2024 Patient Health Questionnaire-9 Score 14 11/27/2024 Last PHQ-9: Questionnaire Data Not on file 0 11/27/2024 Housing Stability Answer Date Recorded What is your housing situation today? I have shaina murguia 05/20/[address] you li ve. Do you have problems with any of the following? None of the above 05/20/2024 Food Insecurity Answer Date Recorded Within the past 12 months, y ou worried that your food would run out before you got money to buy more: Never True 05/20/2024 Within the past 12 months,th e food you bought just didn't last and you didn't have enough money to get more: Never True Transportation Answer Date Recorded In the past 12 months, has l ack of transportation kept you from medical appts, meetings, work or from getting things needed for daily living? No 05/20/2024 Utilities Answer Date Recorded In the past 12 months, has t he electric, gas, oil or water company threatened to shut off services in your home? No 05/20/2024 Depression Answer Date Recorded Patient Health Questionnaire-2 Score 4 11/27/2024 Internet Access Answer Date Recorded Internet Access Q1 Yes 05/20/2024 Internet Access Q2 Not on file 05/20/2024 Comments Unknown Sex and Gender Information Value Date Recorded Sex Assigned at Female 03/05/2022 10:14 AM EDT Legal Sex Female 10:14 AM EDT Gender Identity Female 03/05/2022 10:14 AM EDT Sexual Orientation Straight 03/05/2022 10 :14 AM EDT Last Filed Vital Signs Vital Sign Reading Time Taken Comments Blood Pressure 112/72 01/18/2025 10:54 AM EDT Pulse 60 01/18/2025 10:54 AM EDT Temperature 36.2 C (97.2 F) 01/18/2025 10:54 AM EDT Respiratory Rate 20 01/18/2025 10:54 AM EDT Oxygen Saturation 99% 11/27/2024 10:14 AM EDT Inhaled Oxygen Concentration - - Weight 63.7 kg (140 lb 8 oz) 01/18/2025 10:54 AM EDT Height 160 cm (5' 3 ) 01/18/2025 10:54 AM EDT Body Mass Index 24.89 01/18/2025 10:54 AM EDT Plan of Treatment Health Maintenance Due Date Last Done Comments Zoster Vaccines (2 of 3) 09/08/2013 07/14/2013 RSV Patients and Patients Aged 60 years or older (1 - 1-dose 75+ series) 12/10/2015 COVID-19 Vaccine (5 - season) 2025 02/28/2022, 04/11/2021, 07/19/2020, Additional history exists Influenza Vaccine (#1) 2025 , 01/31/2023, 02/09/2022, Additional history exists Alcohol/Substance Use Screening 05/20/2025 05/20/2024 SDOH Screening 05/20/2025 05/20/2024 Depression Monitoring 05/30/2025 11/27/2024, 025 Tobacco Screening 01/18/2026 01/18/2025 Lipid Panel 08/05/2028 08/06/2023, 02/04, 04/25/2021, Additional history exists DTaP/Tdap/Td Vaccines (2 - Td or Tdap) 03/01/2030 03/01/2020, 03/24/2008, 11/30/1996 Pneumococcal Vaccine: 50+ Years Completed 05/29/2022, 03/01/2020, 07/20/2008, Additional history exists HIB Vaccines Aged Out No longer eligi ble based on patient's age to complete this topic HPV Vaccines Aged Out No longer eligi ble based on patient's age to complete this topic Hepatitis A Vaccines Aged Out No long er eligible based on patient's age to complete this topic Hepatitis B Vaccines Aged Out No long er eligible based on patient's age to complete this topic IPV Vaccines Aged Out No longer eligi ble based on patient's age to complete this topic Meningococcal B Vaccine Aged Out No l onger eligible based on patient's age to complete this topic Meningococcal Vaccine Aged Out No monika rhonda eligible based on patient's age to complete this topic RSV under 20 months Aged Out No longe r eligible based on patient's age to complete this topic Rotavirus Vaccines Aged Out No longer eligible based on patient's age to complete this topic Procedures Procedure Name Priority Date/Time Associated Diagnosis Comments T4, FREE Routine 03/02/2025 12:08 PM EDT TSH W/REFLEX TO FT4 Routine 03/02/2025 12:08 PM EDT Memory loss CBC WITH AUTO DIFFERENTIAL Routine 03/02/2025 12:08 PM EDT Memory loss VITAMIN D,25-OH,TOTAL,IA Routine 03/02/2025 12:08 PM EDT Memory loss VITAMIN B12 Routine 03/02/2025 12:08 PM EDT Memory loss LIPID PANEL, STANDARD Routine 08/06/2023 9:00 AM EDT Pure hypercholesterolemia from Last 3 Months or Most Recently Relevant to Health Maintenance Results * Vitamin D, 25-Hydroxy, Total, Immunoassay (03/02/2025 12:08 PM EDT) Vitamin D 25-OH Total 30.3 >30 ng/mL [facility] Comment: Health Based Reference Values*< 20 ng/mL [id number] ng/mL Insufficient> 30 ng/mL Sufficient*Shayan GATES. N Engl J Med. 2007;357:266-280There is no well-established upper level of normal vitamin Dlevels. Some laboratories use 50 ng/mL as an upper limit ofnormal. However, toxicity is patient-dependent and may occurat any level. Careful correlation with the patient'spresentation is necessary and, if there is concern forvitamin D toxicity, treatment should be consideredirrespective of the serum level.Care must be taken in interpreting Vitamin D results fromdifferent laboratories and methodologies. Published datademonstrated that results from patients undergoinghemodialysis may show a negative bias when tested withvarious automated 25-OH vitamin D assays when compared toLC-MS/MS.When testing samples from patients whose predominant form ofVitamin D is Vitamin D2, such as patients receiving VitaminD2 supplementation, results that are subtherapeutic shouldbe confirmed with another method such as LC-MS/MS. Blood Venous blood specimen / Unknown 03/02/2025 12:08 PM EDT 03/02/2025 12:59 PM EDT Latisha Chawla ANP LAB BLOOD ORDERABLES Final Resul t Performing Organization Address City/[facility] [address]/ZIP Co de Phone Number [facility] [address] [place] [address] [phone] * (ABNORMAL) TSH W/Reflex to FT4 (03/02/2025 12:08 PM EDT) TSH reflex Free T4 7.42(H) 0.32 - 4.0 uIU/mL [facility] Blood Venous blood specimen / Unknown 03/02/2025 12:08 PM EDT 03/02/2025 12:59 PM EDT Latisha Chawla [facility] LAB BLOOD ORDERABLES Final Resul t Performing Organization Address [facility] [address]/[facility] de Phone Number [facility] [address] [place] [address] [phone] * (ABNORMAL) CBC auto differential (03/02/2025 12:08 PM EDT) Pathologist [facility] White Blood Count 6.3 4.8 - 10.8 X10*3/uL [facility] Red Blood Count 4.00(L) 4.20 - 5.50 X10*6/uL [facility] Hemoglobin 12.6 12.0 - 16.0 g/dl [facility] Hematocrit 38.8 37.0 - 47.0 % [facility] Mean Corpuscular Volume 97.0 80.0 - 98.0 fL [facility] Mean Corpuscular Hemoglobin 31.5 27.0 - 33.0 pg [facility] Mean Corpuscular HGB Conc 32.5 31.0 - 35.0 g/dl [facility] Red Cell Distribution Width 13.0 11.0 - 16.0 % [facility] Platelet Count 258 160 - 400 X10*3/uL [facility] Mean Platelet Volume 9.6 9.4 - 12.3 fL [facility] Neutrophils Percent Auto 59.0 45 - 73 % [facility] Imm Gran Pct Auto 0.2 0.0 - 0.4 % [facility] Lymphocytes Percent Auto 27.3 20 - 40 % [facility] Monocytes Percent Auto 9.2 2 - 11 % [facility] Eosinophils Percent Auto 2.9 0 - 4 % [facility] Basophils Percent Auto 1.4 0 - 2 % [facility] NRBC Pct Auto 0.0 0.0 - 0.2 /100WBC [facility] Neutrophils Absolute Auto 3.7 2.0 - 8.3 x10*3/uL [facility] Imm Gran Abs Auto 0.01 0.00 - 0.03 X10*3/uL [facility] Lymphocytes Absolute Auto 1.7 1.2 - 4.9 X10*3/uL [facility] Monocytes Absolute Auto 0.6 0.1 - 1.2 X10*3/uL [facility] Eosinophils Absolute Auto 0.2 0.0 - 0.4 X10*3/uL [facility] Basophils Absolute Auto 0.1 0.0 - 0.2 X10*3/uL [facility] NRBC Abs Auto 0.000 0.0 - 0.012 X10*3/uL [facility] Blood Venous blood specimen / Unknown 03/02/2025 12:08 PM EDT 03/02/2025 12:59 PM EDT Latisha Chawla ANP LAB BLOOD ORDERABLES Final Resul t [facility] [address] [place] [phone] * T4, Free (03/02/2025 12:08 PM EDT) Free T4 (Free Thyroxine) 0.73 0.71 - 1.85 ng/dL [facility] 03/02/2025 12:0 8 PM EDT 03/02/2025 12:59 PM EDT Latisha Chawla ANP LAB BLOOD ORDERABLES Final Resul t Performing Organization Address [facility] [address]/ZIP Co de Phone Number [facility] [address] [place] [address] [phone] * (ABNORMAL) Vitamin B12 (03/02/2025 12:08 PM EDT) Vitamin B12 1,407(H) 200 - 900 pg/mL [facility] Comment:NORMAL 200-900 PG/ML INDETERMINATE 160-199 PG/ML DEFICIENT < 160 PG/ML Blood Venous blood specimen / Unknown 03/02/2025 12:08 PM EDT 03/02/2025 12:59 PM EDT Latisha Chawla [facility] LAB BLOOD ORDERABLES Final Resul t Performing Organization Address [facility] [address]/[facility] Co de Phone Number [facility] [address] [place] [address] [phone] * (ABNORMAL) Lipid Panel, Standard (08/06/2023 9:00 AM EDT) Triglycerides 59 <150 mg/dL [facility] Comment:Desirable Triglyceri de: less than 150 mg/dLBorderline High Triglyceride 150-199 mg/dLHigh Triglyceride: 200-499 mg/dLVery High Triglyceride: greater than or equal to 5OO mg/dL Cholesterol 208(H) <200 mg/dL [facility] Comment:Desirable Cholestero l: less than 200 mg/dLBorderline High Cholesterol: 200-239 mg/dLHigh Cholesterol: greater than 239 mg/dL LDL Cholesterol Calculated 118(H) <100 mg/dL [facility] Comment:Desirable LDL: less than 100 mg/dLNear Optimal/Above Optimal LDL: 110- 129 mg/dLBorderline High LDL: 130-159 mg/dLHigh LDL: 160-189 mg/dLVery High LDL: greater than or equal to 190 mg/dL HDL Cholesterol 79 >40 mg/dL [facility] Comment:Desirable HDL: great er than 40 mg/dL Note: This HDL assay may give artificially low results in patients with liver disease. Blood Venous blood specimen / Unknown 08/06/2023 9:00 AM EDT 08/06/2023 12:47 PM EDT Latisha BARRAGAN LAB BLOOD ORDERABLES Final Resul t [facility] [address] [place] [address] [phone] from Last 3 Months or Most Recently Relevant to Health Maintenance Insurance [facility] [employer]TERM OPT[employer] (O D-SNP) Care Teams Group Work Program Director Relationship Specialty Start Date End Date Latisha Chawla ANP [address] [place] [phone] PCP - General Family Medicine 02/09/22
--- OUTSIDE RECORDS SUMMARY | 2025-03-02 15:13 | XMS_ITS | Encounter Summary ---
Author Organization [employer] Address [address] [facility] 7t [place] [address] Care Team Providers Care Can Marker Name Role Phone Latisha Chawla Primary Care Provider [phone] Encounter Details Date Type Department Care Team ([facility] st Contact Info) Description 03/02/2025 Orders Only [facility] MEDICINE [address] [place] [address] Latisha Chawla ANP [address] [place] [address] Social History Tobacco Use Types Packs/Day Years [...] on file documented as of this encounter Procedures Procedure Name Priority Date/Time Associated Diagnosis Comments T4, FREE Routine 03/02/2025 12:08 PM EDT documented in this encounter Results * T4, Free (03/02/2025 12:08 PM EDT) Free T4 (Free Thyroxine) 0.73 0.71 - 1.85 ng/dL [facility] 03/02/2025 12:0 8 PM EDT 03/02/2025 12:59 PM EDT us Latisha [facility] BLOOD ORDERABLES Final Resul t [facility] [address] [place] [address] [phone] documented in this encounter Visit Diagnoses Not on filedocumented in this encounter Additional Health Concerns Assessment Noted Time PHQ-9 Depression Total Score: 14 025 10:06 AM EDT documented as of this encounter Care Teams Can Marker Relationship Specialty Start Date End Date Latisha Chawla ANP [address] [place] [address] PCP - General Family Medicine 02/09/22 documented as of this encounter
--- OUTSIDE RECORDS SUMMARY | 2025-03-02 15:13 | XMS_ITS | Encounter Summary ---
Author Organization [employer] Address [address] [facility] 7t [place] [address] Care Team Providers Care Overlock Hemmer Name Role Phone Latisha Chawla Primary Care Provider [phone] Reason for Visit * Reason Onset Date Comments Results 08/13/2023 Encounter Details Date Type Department Care Team ([facility] Contact Info) Description 08/13/2023 Telephone [facility] MEDICINE [address] [place], [place] [phone] Latisha Chawla ANP [address] [place], [place] [phone] Results Social History Tobacco Use Types Packs/Day Years Used Date Smoking Tobacco: Never Smokeless Tobacco: Never Alcohol Use Standard Drinks/Week Comments Not Currently 0 (1 standard drink = 0.6 oz pur e alcohol) PHQ-2 Answer Date Recorded Patient Health Questionnaire-2 Score 0 12/31/2022 Housing Stability Answer Date Recorded What is your housing situation today? I have [place] 03/08/[address] you [...] the past 12 months, has t he [employer], oil or water company threatened to shut [...] * Telephone Encounter - Vinod Bee - 08/13/2023 8:45 AM EDT TC from pt requesting call back regarding Results. Type of results: Lab Works Carboxyhemoglobin, Blood Date when done: 08/05 [place] [facility] documented in this encounter Plan of Treatment Not on file documented as of this encounter Visit Diagnoses Not on filedocumented in this encounter Care Teams Overlock Hemmer Relationship Specialty Start Date End Date Latisha Chwala ANP [address] [place] [phone] PCP - General Family Medicine 02/09/22 documented as of this encounter
--- OUTSIDE RECORDS SUMMARY | 2025-03-02 15:14 | XMS_ITS | Encounter Summary ---
Author Organization [employer] Address [address] [facility] 7t [place] [address] Care Team Providers Care Vinyl Installer Name Role Phone Latisha Chawla Primary Care Provider [phone] Reason for Visit * Reason Onset Date Comments Med Refill 02/08/2023 Encounter Details Date Type Department Care Team ([facility] st Contact Info) Description 02/08/2023 Telephone [facility] MEDICINE [address] [place] [address] Latisha Chawla ANP [address] [place] [address] Med Refill Social History Tobacco Use Types Packs/Day Years Used Date Smoking Tobacco: Never Smokeless Tobacco: Never Alcohol Use Standard Drinks/Week Comments Not Currently 0 (1 standard drink = 0.6 oz pur e alcohol) PHQ-2 Answer Date Recorded Patient Health Questionnaire-2 Score 0 12/31/2022 Depression Answer Date Recorded Patient Health Questionnaire-2 Score 0 12/31/2022 Comments Unknown Sex and Gender Information Value Date Recorded Sex Assigned at Female 03/05/2022 10:14 AM EDT Legal Sex Female 10:14 AM EDT Gender Identity Female 03/05/2022 10:14 AM EDT Sexual Orientation Straight 03/05/2022 10 :14 AM EDT documented as of this encounter Miscellaneous Notes * Telephone Encounter - Mare Heriberto - 02/08/2023 11:37 AM EDT Tc from pt requesting medication refill on oxyCODONE (Roxicodone) 5 MG immediate release tablet to be sent to [id number] - [place], [place] - [address] [facility] [address] documented in this encounter Plan of Treatment Not on file documented as of this encounter Visit Diagnoses Not on filedocumented in this encounter Care Teams Vinyl Installer Relationship Specialty Start Date End Date Latisha Chawla ANP [address] [place] [address] PCP - General Family Medicine 02/09/22 documented as of this encounter
--- OUTSIDE RECORDS SUMMARY | 2025-03-02 15:14 | XMS_ITS | Encounter Summary ---
Author Organization [employer] Address [address] [facility] 7t [place] [address] Care Team Providers Care Office Services Representative Name Role Phone Latisha Chawla Primary Care Provider [phone] Reason for Visit * Reason Onset Date Comments Med Refill 04/12/2023 Encounter Details Date Type Department Care Team ([facility] st Contact Info) Description 04/12/2023 Telephone [facility] MEDICINE [address] [place] [address] Latisha Chawla ANP [address] [place] [address] Med Refill Social History Tobacco Use Types [...] encounter Miscellaneous Notes * Telephone Encounter - Orville Hsu - 04/16/2023 1:55 PM EST Tc from pt daughter requesting status on medication * Telephone Encounter - Kat Abdi - 04/12/2023 11:16 AM EST Tc from pt requesting med refill on; oxyCODONE (Roxicodone) 5 MG immediate release tablet documented in this encounter Plan of Treatment Not on file documented as of this encounter Visit Diagnoses Not on filedocumented in this encounter Care Teams Office Services Representative Relationship Specialty Start Date End Date Latisha Chawla ANP [address] [place] [address] PCP - General Family Medicine 02/09/22 documented as of this encounter
--- OUTSIDE RECORDS SUMMARY | 2025-03-02 15:14 | XMS_ITS | Clinical Summary ---
Author Organization [facility] Address [address] [facility] [address] [place] [address] Phone Care Team Providers Care Account Relationship Manager Name Role Phone Pcp, Unknown Primary Care Provider Unavailabl e Encounters Date Type Department Care Team Description 12/15/2024 Telephone [facility] [address], [address] [place] [address] Nereyda Pleitez 12/15/2024 Orders Only [facility] [address], [address] [place] [address] Nereyda Pleitez Aortic stenosis, mild (Primary Dx) from Last 3 Months Social History Tobacco Use Types Packs/Day Years Used Date Smoking Tobacco: Never Assessed Education Answer Date Recorded Are you interested in more education? Not on ashley e 12/15/2024 Are you concerned about learning? Not on file 12/15/2024 No 12/15/2024 No 12/15/2024 Digital Access Answer Date Recorded No 12/15/2024 No 12/15/2024 Reliable internet access at home? Not on file 12/15/2024 Device with a working camera? Not on file Comments Unknown Sex and Gender Information Value Date Recorded Sex Assigned at Not on file Legal Sex Female 2:26 PM EDT Gender Identity Not on file Sexual Orientation Not on file Plan of Treatment Upcoming Encounters Date Type Department Care Team (Late st Contact Info) Description 12/15/2024 Procedure Pass [facility] [address] [place] [address] 04/28/2025 9:30 AM EST Appointment [facility] [address] [place] [address] Fernando Diop MD [address] [place] [phone] [email or web address] Medical Devices Not on file Insurance [facility] MEDICARE REPLACEMENT [place] [place] [id number] [facility] MEDICARE REPLACEMENT [facility] MEDICARE REPLACEMENT [facility] MEDICARE REPLACEMENT [facility] MEDICARE REPLACEMENT [facility] MEDICARE REPLACEMENT Care Teams Account Relationship Manager Relationship Specialty Start Date End Date Pcp, Unknown PCP - General 12/15/24 Additional Source Comments The information contained in this document represents components of the legal health record. It is not the complete legal health record.[facility]
--- OUTSIDE RECORDS SUMMARY | 2025-03-02 15:14 | XMS_ITS | Encounter Summary ---
Author Organization [employer] Address [address] [facility] 7t [place] [address] Care Team Providers Care Contour Grinder Name Role Phone Latisha Chawla Primary Care Provider [phone] Reason for Visit * Reason Onset Date Comments Med Refill 09/12/2022 Encounter Details Date Type Department Care Team ([facility] st Contact Info) Description 09/12/2022 Refill [facility] MEDICINE [address] [place] [address] Latisha Chawla ANP [address] [place] [address] Other chronic pain Social History Tobacco Use Types Packs/Day Years Used Date Smoking Tobacco: Never Smokeless Tobacco: Never Alcohol Use Standard Drinks/Week Comments Not Currently 0 (1 standard drink = 0.6 oz pur e alcohol) Comments Unknown Sex and Gender Information Value Date Recorded Sex Assigned at Female 03/05/2022 10:14 AM EDT Legal Sex Female 10:14 AM EDT Gender Identity Female 03/05/2022 10:14 AM EDT Sexual Orientation Straight 03/05/2022 10 :14 AM EDT COVID-19 Exposure Response Date Recorded In the last 10 days, have yo u been in contact with someone who was confirmed or suspected to have Coronavirus/COVID-19? No / Unsure 08/30/2022 9:40 AM EDT documented as of this encounter Miscellaneous Notes * Telephone Encounter - aDhlia Michaels - 09/12/2022 10:36 AM EDT Tc from pt requesting med refill for medication oxyCODONE (Roxicodone) 5 MG immediate release tablet. documented in this encounter Plan of Treatment Not on file documented as of this encounter Visit Diagnoses Diagnosis Other chronic pain documented in this encounter Care Teams Contour Grinder Relationship Specialty Start Date End Date Latisha Chawla ANP [address] [place] [address] PCP - General Family Medicine 02/09/22 documented as of this encounter
--- OUTSIDE RECORDS SUMMARY | 2025-03-02 15:14 | XMS_ITS | Encounter Summary ---
Author Organization [employer] Address [address] [facility] 7t [place] [address] Care Team Providers Care Receiving Tank Operator Name Role Phone Latisha Chawla Primary Care Provider [phone] Reason for Visit * Reason Onset Date Comments Med Refill 01/10/2023 Encounter Details Date Type Department Care Team ([facility] st Contact Info) Description 01/10/2023 Telephone [facility] MEDICINE [address] [place] [address] Latisha Chawla ANP [address] [place] [address] Med Refill Social History Tobacco Use Types [...] encounter Miscellaneous Notes * Telephone Encounter - Dahlia Michaels - 01/10/2023 11:16 AM EDT TC from pt daughter requesting med refill for medication oxyCODONE (Roxicodone) 5 MG immediate release tablet. documented in this encounter Plan of Treatment Not on file documented as of this encounter Visit Diagnoses Not on filedocumented in this encounter Care Teams Receiving Tank Operator Relationship Specialty Start Date End Date Ltaisha Chawla ANP [address] [place] [address] PCP - General Family Medicine 02/09/22 documented as of this encounter
[2025-03-03 08:13] LABS: Syphilis Screen Nonreactive (Nonreactive)
== END 2025-03-02 11:48 | disposition home or self-care (01) ==
LOC: HO.HHCL 11:47
PROVIDERS: PCP Nurse Practitioner Primary Care; Visit Provider Nurse Practitioner Primary Care
DX: Z11.3 Encounter for screening for infections with a predominantly sexual mode of transmission (principal); R41.3 Other amnesia
CPT/HCPCS: 36415; 82306; 82607; 83921; 84439; 84443; 85025; 86780

== ENCOUNTER 2025-03-26 10:52 | Outpatient (REF) | payer OTHER, SELFPAY ==
--- NOTE | ~2025-03-26 | CT_ITS ---
EXAMINATION: CT HEAD WITHOUT CONTRAST CLINICAL INFORMATION: memory loss COMPARISON: 02/06/2022 TECHNIQUE: Contiguous axial imaging was performed from the skull base to vertex without intravenous administration of contrast. This CT examination was performed using dose optimization techniques as appropriate, variously including the following: *Automated exposure control *Adjustment of mA and/or kV according to patient size (this includes techniques or standardized protocols for targeted exams where dose is matched to indication/reason for exam; i.e. extremities or head) *Use of iterative reconstruction technique FINDINGS: There is no acute ischemic change. Again seen is extensive deep white matter periventricular hypodensities as well as bilateral chronic lacunar infarcts involving anterior limb of internal capsules, left greater than right. There is no intracranial hemorrhage. There is no mass-effect or midline shift. Basal cisterns and ventricles are within normal limits for age/cerebral volume. Orbits are symmetrical and unremarkable. Mild mucosal thickening is present in the floors of the maxillary sinuses. There are no bony abnormalities. CT/CT head/brain wo IV con IMPRESSION: No acute intracranial abnormality. 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 Mild chronic mucosal changes in the maxillary sinuses. Electronically signed by: Saleem Banerjee MD 03/26/2025 11:58 AM NICK
--- OUTSIDE RECORDS SUMMARY | 2025-03-26 11:45 | XMS_ITS | Encounter Summary ---
Author Organization [employer] Address [address] [facility] 7t [place] [address] Care Team Providers Care Circular Knife Machine Cutter Name Role Phone Latisha Chawla Primary Care Provider [phone] Reason for Visit * Reason Onset Date Comments Med Refill 01/16/2024 Encounter Details Date Type Department Care Team ([facility] st Contact Info) Description 01/16/[address] [facility] MEDICINE [address] [place] [address] Latisha Chawla ANP [address] [place] [address] Med Refill Social History Tobacco Use Types [...] immediate release tablet To be sent to: [id number] - [place], [place] - [address] [facility] documented in this encounter Plan of Treatment Not on file documented as of this encounter Visit Diagnoses Not on filedocumented in this encounter Care Teams Circular Knife Machine Cutter Relationship Specialty Start Date End Date Latisha Chawla ANP [address] [place] [address] PCP - General Family Medicine 02/09/22 documented as of this encounter
--- OUTSIDE RECORDS SUMMARY | 2025-03-26 11:45 | XMS_ITS | Encounter Summary ---
Author Organization [employer] Address [address] [facility] 7t [place] [address] Care Team Providers Care Drying Supervisor Name Role Phone Latisha Chawla Primary Care Provider [phone] Reason for Visit * Reason Onset Date Comments Med Refill 11/11/2023 Encounter Details Date Type Department Care Team ([facility] st Contact Info) Description 11/11/2023 Telephone [facility] MEDICINE [address] [place] [address] Latisha Chawla ANP [address] [place] [address] Med Refill Social History Tobacco Use Types [...] immediate release tablet To be sent to: [id number] [place], [place] - [address] [place] [address] documented in this encounter Plan of Treatment Not on file documented as of this encounter Visit Diagnoses Not on filedocumented in this encounter Care Teams Drying Supervisor Relationship Specialty Start Date End Date Latisha Chawla ANP [address] [place] [address] PCP - General Family Medicine 02/09/22 documented as of this encounter
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
--- OUTSIDE RECORDS SUMMARY | 2025-03-26 11:45 | XMS_ITS | Encounter Summary ---
Author Organization [employer] Address [address] [facility] 7t [place] [address] Care Team Providers Care Process Laboratory Specialist Name Role Phone Latisha Chawla Primary Care Provider [phone] Reason for Visit * Reason Comments Med Refill Encounter Details Date Type Department Care Team ([facility] st Contact Info) Description 06/04/2023 Refill [facility] [address] [place], [place] [phone] Latisha Chawla ANP [address] [place], [place] [phone] Non-seasonal allergic rhinitis, unspecified trigger Social History [...] t he electric, gas, oil or water [employer] threatened to shut off services in your [...] trigger documented in this encounter Care Teams Process Laboratory Specialist Relationship Specialty Start Date End Date Latisha Chawla ANP [address] [place] [phone] PCP - General Family Medicine 02/09/22 documented as of this encounter
--- OUTSIDE RECORDS SUMMARY | 2025-03-26 11:45 | XMS_ITS | Encounter Summary ---
Author Organization [employer] Address [address] [facility] 7t [place] [address] Care Team Providers Care Lymphedema Therapist Name Role Phone Latisha Chawla Primary Care Provider [phone] Reason for Visit * Reason Onset Date Comments Results 03/23/2025 Encounter Details Date Type Department Care Team ([facility] Contact Info) Description 03/23/2025 Telephone [facility] MEDICINE [address] [place] [address] Latisha Chawla ANP [address] [place] [address] Results Social History Tobacco Use Types Packs/Day [...] encounter Miscellaneous Notes * Telephone Encounter - Gwyn Pito - 03/23/2025 1:32 PM EST TC from pt requesting call back regarding Results. Type of results: labs Date when done: 03/02/25 Facility: [facility] documented in this encounter Plan of Treatment Not on file documented as of this encounter Visit Diagnoses Not on filedocumented in this encounter Additional Health Concerns Assessment Noted Time PHQ-9 Depression Total Score: 14 025 10:06 AM EDT documented as of this encounter Care Teams Lymphedema Therapist Relationship Specialty Start Date End Date Latisha Chawla ANP [address] [place] [address] PCP - General Family Medicine 02/09/22 documented as of this encounter
--- OUTSIDE RECORDS SUMMARY | 2025-03-26 11:45 | XMS_ITS | Clinical Summary ---
Author Organization [employer] Address [address] [facility] 7t [place] [address] Care Team Providers Care Hand Outside Cutter Name Role Phone Latisha Chawla Primary Care Provider [phone] Allergies Active Allergy Reactions Criticality Noted Date [...] DAILY DIRECTED 2 Active Deep Sea Nasal [place] 0.65 % nasal spray INSTILL 1 SPRAY [...] obstructive pulmonary disease, unspecified COPD type (CMS/HCC) ([facility]) TAKE 1 TABLET BY MOUTH EVERY NIGHT [...] (major depressive disord er), recurrent episode, moderate ([facility]/HCC) 11/27/2024 Assessment & Plan (11/30/2024 9:39 AM [...] doing medication management with Dr. Garcia from [facility]. Pt reported hx of trauma. [...] doing medication management with Dr. Garcia from [facility]. Pt reported hx of trauma. [...] 05/06/1959 Disorder of rotator cuff 05/06/1959 Encounters Date Type Department Care Team Description 03/25/2025 Telephone [facility] MED[facility]INE [address] [place] [address] Latisha Chawla ANP Results 03/23/2025 Telephone [facility] [address] [place] [address] Latisha Chawla ANP Results 03/15/2025 Orders Only [facility] [address] [place] [phone] Latisha Chawla ANP Memory loss (Primary Dx) 03/04/2025 Results Follow-Up [facility] [address] [place] [phone] Latisha Chawla ANP Vitamin B12, Vitamin D, 25-Hydroxy, Total, Immunoassay, CBC auto differential, Additional followed-up results: 2 03/02/2025 Orders Only [facility] [address] [place] [address] Latisha Chawla ANP 02/22/2025 Telephone [facility] [address] [place] [phone] Latisha Chawla ANP HCP paperwork request 01/26/2025 11:00 AM EDT Clinical Support [address] [address] Cami Arteaga RN Memory loss 01/26/2025 Travel 01/18/2025 11:00 AM EDT Office Visit [address] [address] Latisha Chawla ANP MDD (major depressive disorder), recurrent episode, moderate (CMS/HCC) (Primary Dx); VAIBHAV (generalized anxiety disorder); Benign hypertension; Pure hypercholesterolemia ; 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; Osteopenia, unspecified location; Memory loss 01/18/2025 Travel 01/15/[address] [address] Latisha Chawla ANP chart prep 01/01/[address] [address] Latisha Chawla ANP from Last 3 Months Immunizations Immunization Administration [...] - 1-dose 75+ series) 12/10/2015 COVID-19 Vaccine ( season) 2025 02/28/2022, 04/11/2021, 07/19/2020, Additional history [...] T4, FREE Routine 03/02/2025 12:08 PM EDT SYPHILIS SCREEN Routine 03/02/2025 12:08 PM EDT Memory loss METHYLMALONIC ACID Routine 03/02/2025 12:08 PM EDT Memory loss TSH W/REFLEX TO FT4 Routine 03/02/2025 12:08 PM EDT Memory loss CBC WITH AUTO DIFFERENTIAL Routine 03/02/2025 12:08 PM EDT Memory loss VITAMIN D,25-OH,TOTAL,IA Routine 03/02/2025 12:08 PM EDT Memory loss VITAMIN B12 Routine 03/02/2025 12:08 PM EDT Memory loss LIPID PANEL, STANDARD Routine 08/06/2023 9:00 AM EDT Pure hypercholesterolemia from Last 3 Months or Most Recently Relevant to Health Maintenance Results * Syphilis Screen (03/02/2025 12:08 PM EDT) Syphilis Screen Nonreactive Nonreactive [facility] Blood 03/02/2025 12:0 8 PM EDT 03/02/2025 12:59 PM EDT [facility] LAB BLOOD ORDERABLES Final Resul t [facility] [address] [place] [phone] * Vitamin D, 25-Hydroxy, Total, Immunoassay (03/02/2025 12:08 PM EDT) Vitamin D 25-OH Total 30.3 >30 ng/mL [facility] Comment: Health Based Reference Values*< 20 ng/mL Viryhabsa15-22 ng/mL Insufficient> 30 ng/mL Sufficient*Shayan GATES. N [...] 12:08 PM EDT 03/02/2025 12:59 PM EDT us Latisha Chawla [facility] BLOOD ORDERABLES Final Resul t Performing Organization Address City/[facility]/ZIP Co de Phone Number [facility] [address] [place] [phone] * (ABNORMAL) TSH W/Reflex to FT4 (03/02/2025 12:08 PM EDT) TSH reflex Free T4 7.42(H) 0.32 - 4.0 uIU/mL [facility] Blood Venous blood specimen / Unknown 03/02/2025 12:08 PM EDT 03/02/2025 12:59 PM EDT us Latisha Chawla [facility] BLOOD ORDERABLES Final Resul t Performing Organization Address City/[facility]/ZIP Co de Phone Number [facility] [address] [place] [phone] * (ABNORMAL) CBC auto differential (03/02/2025 12:08 PM EDT) White Blood Count 6.3 4.8 - 10.8 X10*3/uL [facility] Red Blood Count 4.00(L) 4.20 - 5.50 X10*6/uL [facility] Hemoglobin 12.6 12.0 - 16.0 g/dl [facility] Hematocrit 38.8 37.0 - 47.0 % [facility] Mean Corpuscular Volume 97.0 80.0 - 98.0 fL [facility] Mean Corpuscular Hemoglobin 31.5 27.0 - 33.0 pg [facility] Mean Corpuscular HGB Conc 32.5 31.0 - 35.0 g/dl [facility] Red Cell Distribution Width 13.0 11.0 - 16.0 % [facility] Platelet Count 258 160 - 400 X10*3/uL [facility] Mean Platelet Volume 9.6 9.4 - 12.3 fL [facility] Neutrophils Percent Auto 59.0 45 - 73 % [facility] Imm Gran Pct Auto 0.2 0.0 - 0.4 % [facility] Lymphocytes Percent Auto 27.3 20 - 40 % [facility] Monocytes Percent Auto 9.2 2 - 11 % [facility] Eosinophils Percent Auto 2.9 0 - 4 % [facility] Basophils Percent Auto 1.4 0 - 2 % [facility] NRBC Pct Auto 0.0 0.0 - 0.2 /100WBC [facility] Neutrophils Absolute Auto 3.7 2.0 - 8.3 x10*3/uL [facility] Imm Gran Abs Auto 0.01 0.00 - 0.03 X10*3/uL [facility] Lymphocytes Absolute Auto 1.7 1.2 - 4.9 X10*3/uL [facility] Monocytes Absolute Auto 0.6 0.1 - 1.2 X10*3/uL [facility] Eosinophils Absolute Auto 0.2 0.0 - 0.4 X10*3/uL [facility] Basophils Absolute Auto 0.1 0.0 - 0.2 X10*3/uL [facility] NRBC Abs Auto 0.000 0.0 - 0.012 X10*3/uL [facility] Blood Venous blood specimen / Unknown 03/02/2025 12:08 PM EDT 03/02/2025 12:59 PM EDT [facility] LAB BLOOD ORDERABLES Final Resul t [facility] [address] [place] [phone] * Methylmalonic Acid (03/02/2025 12:08 PM EDT) Methylmalonic Acid 85 85 - 423 nmol/L [facility] Comment: Serum methylmalonic acid (MMA) levels are used todiagnose and monitor several rare inborn errors ofmetabolism, including methylmalonic aciduria. Theenzymatic conversion of MMA to succinic acid requiresvitamin B12 (adenosyl-cobalamin) as a cofactor. SerumMMA levels are also used for assessing functionalvitamin B12 deficiency. Vitamin B12 is essential forfetal neurodevelopment, particularly early inpregnancy. Undiagnosed maternal vitamin B12 deficiencymay be associated with adverse / outcomes,such as neural tube defects and intrauterine growthrestriction.[employer] utilized Multi-Modal Decomposition(MMD) analysis to establish first and second trimester-specific MMA reference intervals in , as givenbelow:MMA, First trimester (<13 wks gestation): 58-167 nmol/LMMA, Second trimester (13-23 wks gestation):63-241 nmol/LThis test was developed and its analytical performancecharacteristics have been determined by [employer]. It has not been cleared or approved by theFDA. This assay has been validated pursuant to the CLIAregulations and is used for clinical purposes.THIS TEST WAS PERFORMED AT:[employer]/[id number] [place] [address]PHQKBEILUANNE RUSH MD,PHD Blood Venous blood specimen / Unknown 03/02/2025 12:08 PM EDT 03/02/2025 12:59 PM EDT us Latisha Chawla ANP LAB BLOOD ORDERABLES Final Resul t Performing Organization Address [facility] Co de Phone Number [facility] [address] [place] [phone] * T4, Free (03/02/2025 12:08 PM EDT) Free T4 (Free Thyroxine) 0.73 0.71 - 1.85 ng/dL [facility] 03/02/2025 12:0 8 PM EDT 03/02/2025 12:59 PM EDT Latisha Chawla [facility] BLOOD ORDERABLES Final Resul t Performing Organization Address [facility] Co de Phone Number [facility] [address] [place] [phone] * (ABNORMAL) Vitamin B12 (03/02/2025 12:08 PM EDT) Pathologist [facility] Vitamin B12 1,407(H) 200 - 900 pg/mL [facility] Comment:NORMAL 200-900 PG/ML INDETERMINATE 160-199 PG/ML DEFICIENT < 160 PG/ML Blood Venous blood specimen / Unknown 03/02/2025 12:08 PM EDT 03/02/2025 12:59 PM EDT Latisha Chawla ANP LAB BLOOD ORDERABLES Final Resul t Performing Organization Address [facility] Co de Phone Number [facility] [address] [place] [phone] * (ABNORMAL) Lipid Panel, Standard (08/06/2023 9:00 AM EDT) Triglycerides 59 <150 mg/dL [facility] Comment:Desirable Triglyceri de: less than 150 mg/dLBorderline High Triglyceride 150-199 mg/dLHigh Triglyceride: 200-499 mg/dLVery High Triglyceride: greater than or equal to 5OO mg/dL Cholesterol 208(H) <200 mg/dL [facility] Comment:Desirable Cholestero l: less than 200 mg/dLBorderline High Cholesterol: 200-239 mg/dLHigh Cholesterol: greater than 239 mg/dL LDL Cholesterol Calculated 118(H) <100 mg/dL [facility] Comment:Desirable LDL: less than 100 mg/dLNear Optimal/Above Optimal LDL: 110- 129 mg/dLBorderline High LDL: 130-159 mg/dLHigh LDL: 160-189 mg/dLVery High LDL: greater than or equal to 190 mg/dL HDL Cholesterol 79 >40 mg/dL [facility] Comment:Desirable HDL: great er than 40 mg/dL Note: This HDL assay may give artificially low results in patients with liver disease. Blood Venous blood specimen / Unknown 08/06/2023 9:00 AM EDT 08/06/2023 12:47 PM EDT Latisha Chawla [facility] BLOOD ORDERABLES Final Resul t [facility] [address] [place] [phone] from Last 3 Months or Most Recently Relevant to Health Maintenance Insurance [id number] RET[facility] (HMO D-SNP) SALAZAR CARDENAS [id number] Care Teams Hand Outside Cutter Relationship Specialty Start Date End Date Latisha Chawla ANP [address] [place] [phone] PCP - General Family Medicine 02/09/22
--- OUTSIDE RECORDS SUMMARY | 2025-03-26 11:45 | XMS_ITS | Encounter Summary ---
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 Pt needs new referral. Granddaughter requesting closest to [place] if possible. * Telephone Encounter - Dahlia Michaels - 05/15/2022 2:40 PM EST Tc from granddaughter Nilsa requesting for rigging loft repairer referral to be made in [facility]. documented in this encounter Plan of Treatment Not on file documented as of this encounter Visit Diagnoses Not on filedocumented in this encounter Care Teams Clock And Watch Hands Dipper Relationship Specialty Start Date End Date Latisha Chawla ANP [address] [place] [address] PCP - General Family Medicine 02/09/22 documented as of this encounter
--- OUTSIDE RECORDS SUMMARY | 2025-03-26 11:45 | XMS_ITS | Encounter Summary ---
Author Organization [employer] Address [address] [facility] 7t [place] [address] Care Team Providers Care Patient Financial Services Specialist Name Role Phone Latisha Chawla Primary Care Provider [phone] Reason for Visit * Reason Onset Date Comments Results 08/13/2023 Encounter Details Date Type Department Care Team ([facility] Contact Info) Description 08/13/2023 Telephone [facility] MEDICINE [address] [place], [place] [phone] Latisha Chawla ANP [address] [place] [address] Results Social History Tobacco Use Types Packs/Day [...] the past 12 months, has t he [employer], oil or water company threatened to shut [...] Carboxyhemoglobin, Blood Date when done: 08/05 Facility: [facility] documented in this encounter Plan of Treatment Not on file documented as of this encounter Visit Diagnoses Not on filedocumented in this encounter Care Teams Patient Financial Services Specialist Relationship Specialty Start Date End Date Latisha Chawla ANP [address] [place] [phone] PCP - General Family Medicine 02/09/22 documented as of this encounter
--- OUTSIDE RECORDS SUMMARY | 2025-03-26 11:45 | XMS_ITS | Encounter Summary ---
Author Organization [employer] Address [address] [place] [address] 7t [place] [address] Care Team Providers Care Parachute Repairer Name Role Phone Latisha Chawla Primary Care Provider [phone] Reason for Visit * Reason Onset Date Comments Results 03/04/2025 Encounter Details Date Type Department Care Team ([facility] Contact Info) Description 03/04/2025 Results Follow-Up [facility] MEDICINE [address] [place] [address] Latisha Chawla ANP [address] [place] [address] Vitamin B12, Vitamin D, 25-Hydroxy, Total, Immunoassay, CBC auto differential, Additional followed-up results: 2 Social History Tobacco Use Types Packs/Day Years [...] encounter Miscellaneous Notes * Telephone Encounter - Jose Smith - 03/26/2025 10:29 AM EST Tc from Muna calling back regarding prior message. Muna was advised No, elevated B12 levels should not cause side effects but would recommend stopping b12 supplement for now. Muna is now requesting for pt to be tested for LFT, BUN, CREAT, GFR Conact melissa at [phone] * Telephone Encounter - Joanie Mclaughlin RN - 03/26/2025 9:00 AM EST TC placed to Muna and M to call back the office in regard to informing about B12 per PCP message below No, elevated B12 levels should not cause side effects but would recommend stopping b12 supplement for now. * Telephone Encounter - Joanie Mclaughlin RN - 03/25/2025 3:19 PM EST Return call placed to the pt granddaughter Muna (was with the pt at the time of the call) in regard to informing about the information below. Muna advised that the pt thyroid values were normal for pt age but vitamin B12 was elevated. Muna confirmed that the pt has been taking vitamin B supplementation and was advised that this information will be sent back to PCP for FYI. Muna also inquired that due to the pt elevated B12 levels if she should expect and side effects from that . ----- Message from Latisha Chawla sent at 03/04/2025 5:23 PM EDT ----- Thyroid at goal given age over 40, however curiously B12 was very high. Does patient take any supplement? Recommend she stop taking B vitamin supplement for now given high level. If she does not take any multivitamin or B12 supplement would recommend repeat in 1 month. Otherwise labs look normal with 1 more test pending. ----- Message ----- From: Interface, Lab Results In Sent: 03/02/2025 1:11 PM EDT To: Latisha Chawla ANP * Telephone Encounter - Enmanuel Adame - 03/25/2025 1:42 PM EST Tc from pt with her granddaughter requesting a call back regarding results Contact pt granddaughter Muna at [phone] (pt granddaughter phone number not in HIPAA , pt gave verbal consent to call this number as she is with her) * Telephone Encounter - Joanie Mclaughlin RN - 03/09/2025 10:06 AM EST TC X3 placed to the pt to inform of the message below and another VM was left to call back the office. Will send the pt a letter in the mail requesting a call back to the office. ----- Message from Latisha Chawla sent at 03/04/2025 5:23 PM EDT ----- Thyroid at goal given age over 40, however curiously B12 was very high. Does patient take any supplement? Recommend she stop taking B vitamin supplement for now given high level. If she does not take any multivitamin or B12 supplement would recommend repeat in 1 month. Otherwise labs look normal with 1 more test pending. ----- Message ----- From: Interface, Lab Results In Sent: 03/02/2025 1:11 PM EDT To: YUNG Brumfield * Telephone Encounter - Joanie Mclaughlin RN - 03/08/2025 11:41 AM EST TC X2 placed to the pt and another VM was left to call back the office. Will postpone this encounter for one final attempt to contact. * Telephone Encounter - Sandra Pryor RN - 03/05/2025 9:04 AM EDT Telephone call x1 to pt to advise of below result. No answer, left voicemail to call back. * Telephone Encounter - Sandra Pryor RN - 03/05/2025 9:04 AM EDT ----- Message from Latisha Chawla sent at 03/04/2025 5:23 PM EDT ----- Thyroid at goal given age over 40, however curiously B12 was very high. Does patient take any supplement? Recommend she stop taking B vitamin supplement for now given high level. If she does not take any multivitamin or B12 supplement would recommend repeat in 1 month. Otherwise labs look normal with 1 more test pending. ----- Message ----- From: Interface, Lab Results In Sent: 03/02/2025 1:11 PM EDT To: YUNG Brumfield * Result Encounter Note - YUNG Brumfield - 03/04/2025 5:23 PM EDT Thyroid at goal given age over 40, however curiously B12 was very high. Does patient take any supplement? Recommend she stop taking B vitamin supplement for now given high level. If she does not takeany multivitamin or B12 supplement would recommend repeat in 1 month. Otherwise labs look normal with 1 more test pending. documented in this encounter Plan of Treatment Not on file documented as of this encounter Visit Diagnoses Not on filedocumented in this encounter Additional Health Concerns Assessment Noted Time PHQ-9 Depression Total Score: 14 025 10:06 AM EDT documented as of this encounter Care Teams Parachute Repairer Relationship Specialty Start Date End Date Latisha Chawla ANP [address] [place] [address] PCP - General Family Medicine 02/09/22 documented as of this encounter
--- OUTSIDE RECORDS SUMMARY | 2025-03-26 11:45 | XMS_ITS | Encounter Summary ---
Author Organization [employer] Address [address] [facility] 7t [place] [address] Care Team Providers Care Health Diagnostics Teacher Name Role Phone Latisha Chawla Primary Care Provider [phone] Reason for Visit * Reason Onset Date Comments Medication Question 05/15/2022 Encounter Details Date Type Department Care Team ([facility] st Contact Info) Description 05/15/2022 Telephone [facility] [address] [place] [address] Latisha Chawla ANP [address] [place] [address] Medication Question Social History Tobacco Use Types [...] on filedocumented in this encounter Care Teams Health Diagnostics Teacher Relationship Specialty Start Date End Date Latisha Chawla ANP [address] [place] [phone] PCP - General Family Medicine 02/09/22 documented as of this encounter
--- OUTSIDE RECORDS SUMMARY | 2025-03-26 11:45 | XMS_ITS | Encounter Summary ---
Author Organization [employer] Address [address] [facility] 7t [place] [address] Care Team Providers Care Research Laboratory Technician Name Role Phone Latisha Chawla Primary Care Provider [phone] Reason for Visit * Reason Onset Date Comments Results 03/25/2025 Encounter Details Date Type Department Care Team ([facility] Contact Info) Description 03/25/2025 Telephone [facility] MEDICINE [address] [place] [address] Latisha Chawla ANP [address] [place] [address] Results Social History Tobacco Use Types Packs/Day [...] * Telephone Encounter - Jose Smith - 03/25/2025 2:12 PM EST Tc from pt daughter Sylvia finley a call back with the results of the lab done on 03/02. Contact daughter at [phone] documented in this encounter Plan of Treatment Not on file documented as of this encounter Visit Diagnoses Not on filedocumented in this encounter Additional Health Concerns Assessment Noted Time PHQ-9 Depression Total Score: 14 025 10:06 AM EDT documented as of this encounter Care Teams Research Laboratory Technician Relationship Specialty Start Date End Date Latisha Chawla ANP [address] [place] [phone] PCP - General Family Medicine 02/09/22 documented as of this encounter
--- OUTSIDE RECORDS SUMMARY | 2025-03-26 11:45 | XMS_ITS | Encounter Summary ---
Author Organization [employer] Address [address] [facility] 7t [place] [address] Care Team Providers Care Meat Manager Name Role Phone Latisha Chawla Primary Care Provider [phone] Reason for Visit * Reason Onset Date Comments Med Refill 12/16/2023 Encounter Details Date Type Department Care Team ([facility] st Contact Info) Description 12/16/2023 Telephone [facility] MEDICINE [address] [place] [address] Latisha Chawla ANP [address] [place] [address] Med Refill Social History Tobacco Use Types [...] immediate release tablet To be sent to: [id number] - [place], [place] - [address] [facility] documented in this encounter Plan of Treatment Not on file documented as of this encounter Visit Diagnoses Not on filedocumented in this encounter Care Teams Meat Manager Relationship Specialty Start Date End Date Latisha Chawla ANP [address] [place] [phone] PCP - General Family Medicine 02/09/22 documented as of this encounter
--- OUTSIDE RECORDS SUMMARY | 2025-03-26 11:46 | XMS_ITS | Encounter Summary ---
Author Organization [employer] Address [address] [place] [address] 7t [place] [address] Care Team Providers Care Sfdc Technical Architect Name Role Phone Latisha Chawla Primary Care Provider [phone] Reason for Visit * Reason Onset Date Comments Med Refill 01/10/2023 Encounter Details Date Type Department Care Team ([facility] st Contact Info) Description 01/10/2023 Telephone [facility] MEDICINE [address] [place] [address] Latisha Chawla ANP [address] [place] [address] Med Refill Social History Tobacco Use Types [...] on filedocumented in this encounter Care Teams Sfdc Technical Architect Relationship Specialty Start Date End Date Latisha Chawla ANP [address] [place] [address] PCP - General Family Medicine 02/09/22 documented as of this encounter
--- OUTSIDE RECORDS SUMMARY | 2025-03-26 11:46 | XMS_ITS | Encounter Summary ---
Author Organization [employer] Address [address] [facility] [address] [place] [address] Care Team Providers Care It Infrastructure Manager Name Role Phone Latisha Chawla Primary Care Provider [phone] Reason for Visit * Reason Onset Date Comments Med Refill 09/12/2022 Encounter Details Date Type Department Care Team ([facility] st Contact Info) Description 09/12/2022 Refill [facility] MEDICINE [address] [place] [address] Latisha Chawla ANP [address] [place] [address] Other chronic pain Social History Tobacco Use [...] * Telephone Encounter - Dahlia Michaels - 09/12/2022 10:36 AM EDT Tc from pt requesting med refill for medication oxyCODONE (Roxicodone) 5 MG immediate release tablet. documented in this encounter Plan of Treatment Not on file documented as of this encounter Visit Diagnoses Diagnosis Other chronic pain documented in this encounter Care Teams It Infrastructure Manager Relationship Specialty Start Date End Date Latisha Chawla ANP [address] [place] [address] PCP - General Family Medicine 02/09/22 documented as of this encounter
--- OUTSIDE RECORDS SUMMARY | 2025-03-26 11:46 | XMS_ITS | Encounter Summary ---
Author Organization [employer] Address [address] [facility] [address] [place] [address] Care Team Providers Care Potato Chip Cooker Machine Name Role Phone Latisha Chawla Primary Care Provider [phone] Reason for Visit * Reason Onset Date Comments Med Refill 02/08/2023 Encounter Details Date Type Department Care Team ([facility] st Contact Info) Description 02/08/2023 Telephone [facility] MEDICINE [address] [place] [address] Latisha Chawla ANP [address] [place] [address] Med Refill Social History Tobacco Use Types [...] immediate release tablet to be sent to [id number] - [place], [place] - [address] [facility] [address] documented in this encounter Plan of Treatment Not on file documented as of this encounter Visit Diagnoses Not on filedocumented in this encounter Care Teams Potato Chip Cooker Machine Relationship Specialty Start Date End Date Latisha Chawla ANP [address] [place] [address] PCP - General Family Medicine 02/09/22 documented as of this encounter
--- OUTSIDE RECORDS SUMMARY | 2025-03-26 11:46 | XMS_ITS | Clinical Summary ---
Author Organization Located [facility] Address [address] [place], [place] [id number] Phone Care Team Providers Care Refueling Ramp Supervisor Name Role Phone Pcp, Unknown Primary Care Provider Unavailabl e Social History Tobacco Use Types Packs/Day Years [...] Info) Description 12/15/2024 Procedure Pass [facility] [address] [place] [address] 04/28/2025 9:30 AM EST Appointment [facility] [address] [place] [address] Fernando Diop MD [address] [place] [id number] [employer] Not on file Insurance [facility] REPLACEMENT [facility] MEDIC[facility] REPLACEMENT [facility] MEDICARE [facility]PLACEMENT [facility] MEDICARE REPLACEMENT [facility] MEDICARE REPLACEMENT [facility] MEDICARE REPLACEMENT Care Teams Refueling Ramp Supervisor Relationship Specialty Start Date End Date Pcp, Unknown PCP - General 12/15/24 Additional Source Comments The information contained in this document represents components of the legal health record. It is not the complete legal health record.Located [facility]
--- OUTSIDE RECORDS SUMMARY | 2025-03-26 11:46 | XMS_ITS | Encounter Summary ---
Author Organization [employer] Address [address] [facility] [address] [place] [address] Care Team Providers Care Rock Worker Name Role Phone Latisha Chawla Primary Care Provider [phone] Reason for Visit * Reason Onset Date Comments Med Refill 04/12/2023 Encounter Details Date Type Department Care Team ([facility] st Contact Info) Description 04/12/2023 Telephone [facility] MEDICINE [address] [place] [address] Latisha Chawla ANP [address] [place] [address] Med Refill Social History Tobacco Use Types [...] on filedocumented in this encounter Care Teams Rock Worker Relationship Specialty Start Date End Date Latisha Chawla ANP [address] [place] [id number] PCP - General Family Medicine 02/09/22 documented as of this encounter
== END 2025-03-26 10:53 | disposition home or self-care (01) ==
LOC: HO.CT 10:52
PROVIDERS: PCP Nurse Practitioner Primary Care; Visit Provider Nurse Practitioner Primary Care
DX: R41.3 Other amnesia (principal)
CPT/HCPCS: 70450

== ENCOUNTER → 2025-03-26 10:54 | Outpatient (BNV) | payer OTHER, SELFPAY | PROVIDERS: PCP Nurse Practitioner Primary Care; Visit Provider Radiology Diagnostic Radiology | DX: R41.3 Other amnesia (principal) | CPT/HCPCS: 70450 ==